=== PATIENT | male | born 1965 | race Caucasian/White ===

== ENCOUNTER → 2018-07-13 | Outpatient (CLI) | payer BC ==
--- NOTE | 2018-07-13 08:51 | CT ---
EXAMINATION TYPE: CT chest w con DATE OF EXAM: 07/13/2018 COMPARISON: None HISTORY: Abn CXR, cough CT DLP: 333.2 mGycm Automated exposure control for dose reduction was used. CONTRAST: CT scan of the chest is performed with IV Contrast, patient injected with 100 mL of Isovue 300. FINDINGS: LUNGS: Moderate upper lobe emphysematous changes. Nodular density right lung apex posteriorly measuri ng 1.4 x 1.7 cm with surrounding parenchymal scar. This may reflect an area of scarring however neopl asm is not excluded. PET/CT is advised. Noncalcified nodule left upper lobe posteriorly measuring 7 m m image 19. Additional scattered calcified granulomas. No evidence for MEDIASTINUM: There are no greater than 1 cm hilar or mediastinal lymph nodes. No pericardial effusi on is seen. Thoracic aorta is of normal caliber. The heart is not enlarged. UPPER ABDOMEN: No significant abnormality appreciated. OTHER: No additional significant abnormality is seen. IMPRESSION: 1. Recommend PET/CT for nodular density right lung apex. 2. Additional noncalcified pulmonary nodule left upper lobe posteriorly.
== END ==
LOC: RADCTMAIN 07:01
PROVIDERS: ATTEND Internal Medicine
DX: R91.1 Solitary pulmonary nodule (principal)
CPT/HCPCS: 71260; Q9967

== ENCOUNTER → 2018-07-21 | Outpatient (CLI) | payer BC ==
--- NOTE | 2018-07-24 07:47 | PE ---
Nuclear medicine PET/CT HISTORY: Multiple pulmonary nodules Patient received 10.7 mCi F-18 FDG intravenously in delayed scanning was performed from the skull bas e to the mid thighs. Localization and attenuation correction CT scan was performed. Correlation CT chest 07/13/2017 DLP 382 mGy centimeters. Neck and chest: Calcified granuloma at the left lung apex is again noted, stellate density at the rig ht lung apex is again noted, no suspicious hypermetabolic uptake. No evident adenopathy. No endobronc hial lesion, pleural pericardial effusion. Small hiatal hernia is present. Small calcified nodule rig ht lower lobe as well as lingula, left lower lobe in the subpleural location, additional scattered ca lcified nodules are present within the lungs. Abdomen pelvis: There is no adrenal mass. No evident liver mass or retroperitoneal adenopathy. No asc ites. Urinary bladder shows wall thickening likely due to chronic outlet obstruction. Prostate shows associated calcification. No suspicious hypermetabolic uptake. Osseous structures within normal limits for age. Degenerative disc changes, facet arthropathy in the lower lumbar spine. Hypertrophic changes present at the sacroiliac joints. IMPRESSION: No suspicious hypermetabolic uptake. Old granulomatous disease. Follow-up chest CT could be performed to assess for stability of patient's apical density which likely represents scarring.
== END | disposition home or self-care (01) ==
LOC: RADPETMAIN 07:00
PROVIDERS: ATTEND Internal Medicine
DX: R91.8 Other nonspecific abnormal finding of lung field (principal)
CPT/HCPCS: 78815; A9552

== ENCOUNTER → 2018-10-31 | Outpatient (CLI) | payer BC | LOC: CPPFTMAIN 12:58 | PROVIDERS: ATTEND Internal Medicine | DX: J43.9 Emphysema, unspecified (principal) | CPT/HCPCS: 94060; 94726; 94729 ==

== ENCOUNTER → 2018-11-06 | Outpatient (CLI) | payer BC ==
--- NOTE | 2018-11-06 09:11 | CT ---
EXAMINATION TYPE: CT chest w con DATE OF EXAM: 11/06/2018 COMPARISON: 07/13/2018 and PET/CT 07/21/2018 HISTORY: 53-year-old male chest mass, lump TECHNIQUE: Contiguous axial scanning of the chest after the administration of 100 mL Isovue 300 IV co ntrast. Coronal/sagittal reconstructions performed. CT DLP: 350.6 mGycm. Automatic exposure control utilized for a dose reduction. FINDINGS: Heart normal size without pericardial effusion. Aorta normal caliber with conventional arch vessel branching anatomy. A prominent precarinal lymph node measures 1.0 cm versus 6 mm previously. Otherwise, no thoracic lymp hadenopathy by CT size criteria. A few scattered calcified granulomas in the lungs. Moderate centrilobular emphysema particularly in t he upper lungs. Right upper lobe irregular opacity shows slight interval increase in size now measuring 2.7 x 1.9 cm versus 1.7 x 1.4 cm, previously. However, there is adjacent new patchy and confluent airspace opacity extending throughout the right u pper lobe, most confluent in the anterior medial right upper lobe abutting the pleural surface, axial image 18. An 8 mm posterior left upper lobe pulmonary nodule, axial image 16 is unchanged for 4 months. No pleural effusion. Trace bilateral gynecomastia. Visualized upper abdomen shows moderate atherosclerotic changes in the abdominal aorta. Bones: Mild degenerative disc disease. No osseous destructive process. IMPRESSION: 1. COPD with moderate emphysema. 2. Irregular right apical opacity slightly larger at 2.7 x 1.9 cm versus 1.7 x 1.4 cm, previously. Ho wever, this may be secondary to new surrounding patchy infiltrate throughout the right upper lobe, co nfluent along the anteromedial right upper lobe. Findings suggest superimposed pneumonia. Three-month follow-up after treatment recommended to reassess the original lesion in question. 3. Continued follow-up of the 8mm left upper lobe pulmonary nodule as well, stable for 4 months. 4. A borderline sized 1 cm precarinal lymph node increased from 6 mm, likely on a reactive basis. Att ention on follow-up. 5. Prior granulomatous disease.
== END | disposition home or self-care (01) ==
LOC: RADCTMAIN 08:26
PROVIDERS: ATTEND Thoracic Surgery (Cardiothoracic Vascular Surgery)
DX: J43.9 Emphysema, unspecified (principal); R91.1 Solitary pulmonary nodule
CPT/HCPCS: 71260; Q9967

== ENCOUNTER → 2019-02-06 | Outpatient (CLI) | payer BC ==
--- NOTE | 2019-02-07 09:40 | CT ---
EXAMINATION TYPE: CT chest w con DATE OF EXAM: 02/06/2019 COMPARISON: 11/06/2018 HISTORY: f/u prior abnormal chest exam CT DLP: 285.4 mGycm Automated exposure control for dose reduction was used. CONTRAST: CT scan of the chest is performed with IV Contrast, patient injected with 100 mL of Isovue 300. FINDINGS: LUNGS: Decreasing size of right apical soft tissue and pleural thickening now measuring 1.5 x 2.1 cm with previous measurements of 2.6 and 1.9 cm. Findings are best seen on axial image 10. Previously se en medial right upper lobe opacity has also resolved. Redemonstration of posterior left upper lobe no dule measuring up to 0.8 cm, similar to prior. No new suspicious nodules, masses or infiltrates. Rede monstration of scattered calcified granulomas throughout the bilateral lungs. Severe emphysematous ch anges. No pleural effusion or pneumothorax. MEDIASTINUM: There are no greater than 1 cm hilar or mediastinal lymph nodes. Previous precarinal lym ph node is also decreased in size now measuring up to 0.9 cm. No pericardial effusion is seen. OTHER: Visualized upper abdomen is grossly unremarkable. IMPRESSION: Resolution of medial right upper lobe opacity, decreasing size of right apical opacity a nd precarinal lymph node with measurements as above. No new nodules, masses or infiltrates. COPD with moderate emphysema.
== END | disposition home or self-care (01) ==
LOC: RADCTMAIN 17:16
PROVIDERS: ATTEND Thoracic Surgery (Cardiothoracic Vascular Surgery)
DX: J43.9 Emphysema, unspecified (principal)
CPT/HCPCS: 71260; Q9967

== ENCOUNTER → 2020-02-11 | Outpatient (CLI) | payer BC ==
--- NOTE | 2020-02-11 16:52 | CT ---
EXAMINATION TYPE: CT chest w con DATE OF EXAM: 02/11/2020 COMPARISON: CT chest 02/06/2019 HISTORY: chest mass, lump CT DLP: 497 mGycm Automated exposure control for dose reduction was used. CONTRAST: CT scan of the chest is performed with IV Contrast, patient injected with 100 mL of Isovue 300. FINDINGS: LUNGS: Severe centrilobular and paraseptal emphysema. There is redemonstrated biapical scarring and a reas of pleural thickening, which overall appears similar to 02/06/2019 comparison. Multiple calcified granulomas redemonstrated. There are unchanged pulmonary nodules, largest measuring up to 7 mm withi n the left upper lobe (4:22). No suspicious new nodules, masses, or opacities. No pleural effusion. N o pneumothorax. The tracheobronchial tree is patent. MEDIASTINUM/SOFT TISSUES: No axillary, hilar, or mediastinal lymphadenopathy greater than 1 cm. Cardi ac size is normal. No pericardial effusion. No thoracic aortic aneurysm. UPPER ABDOMEN: No adrenal nodule. OSSEOUS: No acute osseous abnormality. IMPRESSION: Severe emphysema with biapical scarring, pleural thickening, and subcentimeter pulmonary nodules whic h are unchanged versus 02/06/2019 comparison. No new nodules or pulmonary masses.
== END | disposition home or self-care (01) ==
LOC: RADCTMAIN 12:34
PROVIDERS: ATTEND Family Medicine
DX: J43.9 Emphysema, unspecified (principal); J92.9 Pleural plaque without asbestos; R91.8 Other nonspecific abnormal finding of lung field
CPT/HCPCS: 71260; Q9967

== ENCOUNTER → 2021-02-04 | Outpatient (CLI) | payer BC ==
--- NOTE | 2021-02-04 20:17 | CT ---
EXAMINATION TYPE: CT chest w con DATE OF EXAM: 02/04/2021 COMPARISON: HISTORY: Chest lump. Spot on lung per patient. CT DLP: 395 mGycm Automated exposure control for dose reduction was used. TECHNIQUE: CT scan of the chest is performed with IV Contrast, patient injected with 100 mL of Isovue 300. MIP Images are created on CT scanner and reviewed. 3D reconstructed images are created on an independent workstation and reviewed. FINDINGS: Nodules: 3.6 mm nodule 4/23 right upper lobe medially, stable. 4.2 mm nodule 4/29 right upper lobe anteriorly, new. 4.6 mm nodule 4/40 right upper lobe peripherally, stable. 4.3 mm nodule 4/45 right middle lobe anteriorly, stable. 3.7 mm nodule 4/53 right middle lobe anteriorly 4/53, stable. 3 mm nodule 4/41 right lower lobe posteriorly, stable. 4.2 mm nodule 4/48 right lower lobe peripherally, stable. 6 mm nodule 4/13 left upper lobe, stable. 8 mm and 3 mm nodules 4/39 left upper lobe peripherally, stable. 4 mm nodule 4/45 left upper lobe subpleural peripheral, stable. 4 mm nodule 4/41 left upper lobe medially, stable. 3 mm nodule 4/51 left lower lobe posterior, stable. Centrilobular emphysema COPD changes with right apical scarring is again seen. Multiple bilateral rig ht greater than left apical bullous emphysema changes noted. Bibasilar subsegmental atelectatic brown es are also seen. No focal airspace disease, pneumothorax or pleural effusion. There is a very thin membrane-like structure in the lower trachea extending from the mid aspect of th e right lateral wall to the lateral inferior aspect of the left lateral wall. This was not seen on pr ior study. There are also opacities layering in the lower trachea series 4 image 19 and those were no t seen on prior study. The peripheral bronchial tree is patent. No mediastinal or hilar adenopathy. The heart is normal in size and there is no pericardial effusion. The great vessels in the thorax are normal in course and caliber. No suspicious osseous abnormality. The thyroid gland is not enlarged. Upper abdomen is unremarkable. The soft tissue is within normal limits. IMPRESSION: 1. New very thin membrane-like structure in the lower trachea with layering lower tracheal opacities, further evaluation recommended may be performed with short-term repeat CT or direct visualization fi ndings may be secondary to aspiration. No evidence of pneumonia. 2. Stable advanced centrilobular bullous emphysema changes with right apical scarring. 3. Stable 3-8 mm pulmonary nodules as described above. No evidence of new nodule. These nodules may b e reactive, infectious or inflammatory. Malignancy cannot be entirely excluded, continued
== END | disposition home or self-care (01) ==
LOC: RADCTMAIN 16:33
PROVIDERS: ATTEND Thoracic Surgery (Cardiothoracic Vascular Surgery)
DX: R91.8 Other nonspecific abnormal finding of lung field (principal); J43.2 Centrilobular emphysema
CPT/HCPCS: 71260; Q9967

== ENCOUNTER → 2022-01-17 | Outpatient (CLI) | payer BC ==
--- NOTE | 2022-01-17 18:06 | CT ---
EXAMINATION TYPE: CT chest wo con CT DLP: 260 mGycm, Automated exposure control for dose reduction was used. DATE OF EXAM: 01/17/2022 4:57 PM COMPARISON: CT chest dated 02/04/2021 and PET scan 08/09/2018. CLINICAL INDICATION:Male, 56 years old with history of R91.8 OTHER NONSPECIFIC ABNORMAL FINDING OF SUZAN NG F, follow up for lung nodule TECHNIQUE: Multiple axial images were obtained through the chest. Sagittal and coronal reformats were created for review. Contrast used: None. Oral contrast used: none. FINDINGS: LUNGS/ PLEURA: There is centrilobular emphysema changes with similar apical scarring, right greater t londono left. There are scattered calcified pulmonary nodules throughout the lungs. AIRWAY: Patent, secretions or seen within on the tracheal wallace and layering dependently. HEART: Size within normal limits. MEDIASTINUM: No gross evidence of adenopathy. VASCULATURE: No aortic aneurysm. MUSCULOSKELETAL: No acute osseous abnormalities, mild multilevel disc degeneration changes throughout the SOFT TISSUES/LYMPH NODES: Unremarkable. LOWER NECK: No significant findings. UPPER ABDOMEN: No significant findings. IMPRESSION: 1. Stable appearance of pulmonology within the lung majority of which are calcified and most consist ent with calcified granulomas. No new and/or enlarging suspicious pulmonary nodules. Consider enrolli ng the patient in merely lung cancer screening criteria. 2. Moderate to severe centrilobular emphysema.
== END ==
LOC: RADCTMAIN 16:25
PROVIDERS: ATTEND Thoracic Surgery (Cardiothoracic Vascular Surgery)
DX: R91.8 Other nonspecific abnormal finding of lung field (principal); J43.2 Centrilobular emphysema
CPT/HCPCS: 71250

== ENCOUNTER → 2023-01-19 | Outpatient (CLI) | payer BC ==
--- NOTE | 2023-01-19 14:46 | US ---
EXAMINATION TYPE: US liver DATE OF EXAM: 01/19/2023 COMPARISON: NONE CLINICAL INDICATION: Male, 57 years old with history of R74.8 ABNORMAL LEVELS OF OTHER SERUM ENZYMES; Lupus, elevated lft's TECHNIQUE: Multiple sonographic images of the right upper quadrant are obtained. FINDINGS: EXAM MEASUREMENTS: Liver Length: 12.5 cm Gallbladder Wall: 0.1 cm CBD: 0.3 cm Right Kidney: 10.8x4.9x4.7 cm Pancreas: Tail obscured by overlying bowel gas Liver: wnl Gallbladder: wnl Evidence for sonographic Limon's sign: No CBD: wnl Right Kidney: wnl, some non-shadowing echogenic foci not believed to be stones. Probably prominent v ascular reflectors are IMPRESSION: No gallstones or biliary duct dilatation. Overall normal homogeneous appearance to the liver by ultra sound.
== END | disposition home or self-care (01) ==
LOC: RADUSWWP 06:53
PROVIDERS: ATTEND Internal Medicine
DX: R74.8 Abnormal levels of other serum enzymes (principal)
CPT/HCPCS: 76705

== ENCOUNTER → 2023-01-26 | Outpatient (CLI) | payer BC ==
--- NOTE | 2023-01-26 16:07 | CTL ---
EXAMINATION TYPE: CT Low Dose Lung DATE OF EXAM ORDERED: 01/26/2023 HISTORY: Z12.2 F17.210. Lung cancer screening, 25 pack year history, current smoker. CT DLP: 85.[address] CTDI: 2.0 mGy Automated exposure control for dose reduction was used. SCREENING VISIT: First screening visit COMPARISON: Multiple CT chest with most recent 01/17/2022 TECHNIQUE: Low dose computed tomography scan was performed through the chest at 1 mm thick sections a nd reconstructed images in multiple planes at 1 mm and [address] DIAGNOSTIC QUALITY: Satisfactory FINDINGS: LUNG NODULES: Scattered calcified granulomas. No clinically significant pulmonary nodule identified. LUNGS: COPD: Severity: Moderate Fibrosis: Severity: None Lymph nodes: None Other findings: Stable scarring within the right lung apex. RIGHT PLEURAL SPACE: Effusion: None Calcification: None Thickening: None Pneumothorax: None LEFT PLEURAL SPACE: Effusion: None Calcification: None Thickening: None Pneumothorax: None HEART: Heart Size: Normal Coronary Calcification: None Pericardial Effusion: None OTHER FINDINGS: Upper abdomen: None Bony thorax: None Supraclavicular region: None Other: None IMPRESSION: 1. No clinically significant pulmonary nodule. 2. Moderate emphysematous changes with stable scarring in the right lung apex. 3. CT LUNG RAD AND CT CHEST RECOMMENDATION: Lung-Rad 1 Negative: Continue annual screening with LDCT in 12 months. S Modifier (other clinically significant findings): None
== END | disposition home or self-care (01) ==
LOC: RADCTMAIN 15:09
PROVIDERS: ATTEND Internal Medicine
DX: Z12.2 Encounter for screening for malignant neoplasm of respiratory organs (principal); J43.9 Emphysema, unspecified; F17.210 Nicotine dependence, cigarettes, uncomplicated; J98.4 Other disorders of lung
CPT/HCPCS: 71271

== ENCOUNTER → 2023-05-27 | Outpatient (CLI) | payer BC ==
[2023-05-27 13:07] LABS: Basophils # (A) 0.04 X 10*3/uL (0.00-0.10); Basophils % (A) 0.4 %; Eosinophils % (A) 1.1 %; HCT 44.3 % (39.6-50.0); HGB 14.9 g/dL (13.0-17.0); Lymphocytes # (A) 1.79 X 10*3/uL (0.90-5.00); Lymphocytes % (A) 19.2 %; MCHC 33.6 g/dL (32.0-37.0); MCV 95.1 FL (80.0-97.0); Mean Platelet Volume 9.7 FL (9.5-12.2); Monocytes # (A) 0.53 X 10*3/uL (0.20-1.00); Monocytes % (A) 5.7 %; NRBC Per 100 WBC 0 X 10*3/uL (0.00-0.01); Neutrophils # (A) 6.83 X 10*3/uL (1.80-7.70); Neutrophils % (A) 73.3 %; Platelet Count 259 X 10*3/uL (140-440); RBC 4.66 X 10*6/uL (4.40-5.60); RDW 12.2 % (11.5-14.5); WBC 9.32 X 10*3/uL (4.50-10.00)
[2023-05-27 13:40] LABS: ALT 16 U/L (10-49); AST 20 U/L (14-35); Albumin 4.2 g/dL (3.8-4.9); Albumin/Globulin Ratio 1.62 Ratio (1.60-3.17); Alkaline Phosphatase 129 U/L (41-126); BUN/Creat Ratio 20.14 Ratio (12.00-20.00); Blood Urea Nitrogen 14.1 mg/dL (9.0-27.0); Calcium 9.6 mg/dL (8.7-10.3); Carbon Dioxide 23.6 mmol/L (21.6-31.8); Chloride 102 mmol/L (96-109); Chol/HDL Ratio 4.27 Ratio; Globulin 2.6 g/dL (1.6-3.3); Glucose 102 mg/dL (70-110); LDL Cholesterol,Calculated 141.4 mg/dL (0.0-131.0); Magnesium 2.3 mg/dL (1.5-2.4); Potassium 4.8 mmol/L (3.5-5.5); Sodium 138 mmol/L (135-145); Total Bilirubin 0.4 mg/dL (0.3-1.2); Total Protein 6.8 g/dL (6.2-8.2); VLDL Calculation 12.46 mg/dL (5.00-40.00)
[2023-05-27 15:47] LABS: PSA Annual Screen 0.874 ng/mL (0.000-4.000)
== END | disposition home or self-care (01) ==
LOC: LABWHC1 07:45
PROVIDERS: ATTEND Internal Medicine
DX: Z12.5 Encounter for screening for malignant neoplasm of prostate (principal); E78.5 Hyperlipidemia, unspecified; E55.9 Vitamin D deficiency, unspecified; R07.9 Chest pain, unspecified
CPT/HCPCS: 80061; 80053; 84443; 83735; 85025; 82306; 93005; 36415; G0103

== ENCOUNTER → 2023-06-23 | Outpatient (CLI) | payer BC ==
[~2023-06-23] MED LIST: REGADENOSON 0.4 MG/5 ML SYRINGE IV ONE
--- NOTE | 2023-06-23 18:41 | NM ---
EXAMINATION TYPE: NM stress lexiscan cardiolite DATE OF EXAM: 06/23/2023 COMPARISON: NONE CLINICAL INDICATION: Male, 58 years old with history of R07.9 chest pain; TECHNIQUE: After the intravenous administration of 9.5 mCi Tc 99m Sestamibi - Cardiolite resting SPE CT images acquired 55 minutes post injection. The patient received 0.4mg Lexiscan, 22.8 mCi Tc 99m Sestamibi - Stress images obtained [address] injection FINDINGS: Review of stress and rest SPECT images demonstrates a fixed defect at the septal apex. No discrete re versibility is seen. Gated analysis shows normal wall motion with an estimated left ventricular eject ion fraction of 59 %. TID is calculated at 1.14, upper limits of normal. IMPRESSION: Small fixed defect at the septal apex that could represent an area of old infarct or atte nuation artifact. Clinically correlate. No inducible ischemia identified.
--- NOTE | 2023-06-24 12:00 | CA ---
Lexiscan Nuclear Stress Test Report Name: Bj Bazzi Exam Date: 06/23/2023 10:15 Exam Location: [facility] Stress Ht (in): 69 Wt (lb): 165 BSA: 1.90 Ordering Phys: Khoi Rodriguez MD Referring Phys: Khoi Rodriguez MD Technologist: Alfonso Zuniga Age: 58 Gender: M : 1965 Procedure CPT: Indications: R07.9 CHEST PAIN ICD-10 Codes: Patient History: CHEST TIGHTNESS, PARDEEP, PALPITATIONS, HTN Medications: VIT D, VERAPAMIL, MONTELUKAST, HZTZ, SIDENAFIL, Meds past 24 hrs: Pretest Chest Pain: STRESS TEST Lexiscan Protocol Exercise Duration (min:sec): 02:[address] Depressions (mm): Angina Score: Pineda Score: Resting HR (bpm): 81 Peak HR (bpm): 104 Resting BP (mmHg): 121 / 88 Peak BP (mmHg): 133 / 66 MPHR: 164 Target HR: 139 % MPHR: 63 METS: 1.0 Total Dose: Peak Dose: Atropine: Double Product: 49464 BP Response: Stress Termination: INFUSION COMPLETE Stress Symptoms: NO SYMPTOMS Stress Summary: ECG ANALYSIS Resting ECG: Stress ECG: CONCLUSIONS At baseline EKG showed normal sinus rhythm, normal axis, no significant ST or T wave abnormalities. Patient recieved IV infusion of Lexiscan 0.4mg and at peak infusion EKG showed no significant change from baseline. Conclusions: 1. Normal EKG response to Lexiscan infusion 2. Nuclear imaging to be reported separately. Dr. Jagdish Weiner DO (Electronically Signed) Final Date: 24 June 2023 11:58
== END | disposition home or self-care (01) ==
LOC: RADNMMAIN 08:01
PROVIDERS: ATTEND Internal Medicine
DX: R07.9 Chest pain, unspecified (principal)
CPT/HCPCS: 93017; 78452; A9500; J2785

== ENCOUNTER 2023-07-28 08:51 | Day surgery (SDC) | payer BC ==
[2023-07-24 15:17] VITALS: BMI 23.9
[~2023-07-28 08:51] MED LIST changes: +ALPRAZolam 0.25 MG TAB PO PRN; +ALPRAZolam 0.5 MG TAB PO PRN; +ASPIRIN 325 MG TAB PO STA; +NITROGLYCERIN SL TABS 0.4 MG TAB SUBLINGUAL PRN; -REGADENOSON 0.4 MG/5 ML SYRINGE IV ONE; +SODIUM CHLORIDE 0.9% 1,000 ML in EMPTY BAG 1 BAG IV SCH
[2023-07-28 09:13] VITALS: RESP 18; TEMP 97.8
[2023-07-28] MEDS ORDERED: LIDOCAINE 1% INJ 10MG/ML (20 ML MDV) ONE (10:28)
[2023-07-28] MEDS ORDERED: VERAPAMIL 2.5 MG/ML 2 ML AMP ONE (10:28)
[2023-07-28] MEDS ORDERED: HEPARIN SODIUM 1,000 UN/ML (10ML VL) ONE (10:38)
[2023-07-28] MEDS ORDERED: fentaNYL (PF) 50 MCG/ML 2 ML AMP ONE (10:38)
[2023-07-28] MEDS ORDERED: fentaNYL (PF) 50 MCG/ML 2 ML AMP IVP ONE ×2 (10:49→11:27)
[2023-07-28] MEDS ORDERED: MIDAZOLAM HCL 10 MG/10 ML VIAL IVP ONE (10:49)
[2023-07-28] MEDS ORDERED: LIDOCAINE 1% INJ 10MG/ML (20 ML MDV) SQ ONE ×3 (10:49→11:29)
[2023-07-28] MEDS ORDERED: MIDAZOLAM 2 MG/2 ML VIAL IVP ONE (11:27)
[2023-07-28] MEDS ORDERED: VERAPAMIL SYRINGE (5 MG/10 ML) INTRAARTER ONE (11:36)
[2023-07-28] MEDS ORDERED: HEPARIN SODIUM 1,000 UN/ML (10ML VL) IVP ONE (11:41)
[2023-07-28] MEDS ORDERED: IOPAMIDOL-370 100ML BTL INJ ONE ×2 (12:00→12:01)
[2023-07-28] MEDS ORDERED: RX INFO: IV CONTRAST WAS GIVEN 1 EACH MISC MISCELLANE PRN (13:05)
[2023-07-28] MEDS ORDERED: SODIUM CHLORIDE 0.9% 1,000 ML IV SCH (13:15)
[2023-07-28 15:36] VITALS: BP 146/88; PULSE 82
--- NOTE | 2023-07-28 19:47 | P.CARDCATH ---
Date of Procedure: 07/28/23 Description of Procedure: DIAGNOSTIC CORONARY ANGIOGRAPHY and LEFT HEART CATH REPORT PROCEDURES PERFORMED: Left heart catheterization Selective coronary angiography Moderate conscious sedation 72 mins Attempted right radial access, failed Left radial access, ultrasound assisted Right common femoral access, ultrasound assisted Right common femoral arteriogram Angioseal Closure Right iliac arteriogram Aorto-iliac arteriogram INDICATION: Abnormal stress test and crescendo chest pressure. Patient was referred to cardiology because of an abnormal stress test. On clinical evaluation in the clinic patient reported crescendo substernal chest pressure-like symptoms with exertion along with dyspnea on exertion. Due to his unstable symptoms and an abnormal stress test along with his risk factors of smoking, he was scheduled for an outpatient heart catheterization procedure. CONSENT: I have discussed the risks, benefits and alternative therapies for the above-mentioned procedure, sedation/analgesia and necessary blood product administration (if indicated, as they pertain to this patient). The patient has indicated understanding and acceptance of the risks and procedures discussed. Conscious Sedation: Patient's ECG, heart rate, blood pressure, pulse oximetry was monitored throughout the duration of procedure under the direct supervision. 3 mg Versed and 75 mg Fentanyl were used for induction of moderate conscious sedation. Total duration of 72 minutes. PROCEDURE:After the risks, benefits and alternatives of the above mentioned procedure explained in detail with the patient, informed consent was obtained. Patient was taken to the catheterization lab and prepped and draped in usual sterile fashion. Right radial artery was identified by palpation. 1% lidocaine was infiltrated over right radial artery. Right radial artery access could not be obtained by palpation method. Ultrasound was utilized but by that time the radial artery was spasmed. Decision was made to proceed with a right femoral artery access. Ultrasound was used to identify the right common femoral artery. 1% lidocaine was infiltrated over the right common femoral artery. Using ultrasound arterial access was obtained using micropuncture needle. A 6-Tajik sheath was placed in the right radial artery using modified Seldinger technique. Right common femoral arteriogram was performed to visualize the placement of the sheath which appeared well-positioned good distal flow in the SFA and profunda. J-wire was advanced through the sheath but could not be advanced. The JR4 catheter was loaded on the wire to direct the wire but could not be advanced. The wire was removed and was exchanged for out Glidewire. The Glidewire could not be advanced. The wire was removed and pressures were obtained from the right iliac artery. Right Iliac pressures were 124/83. Right iliac angiogram was performed which showed concerns of possible upstream occlusion. Decision was made to proceed with a left radial access. Left radial artery was identified using ultrasound. 1% lidocaine was infiltrated over the left radial artery. Left radial artery access was obtained via modified Seldinger technique. A 6 Tajik glide sheath was advanced in the left radial artery and was flushed. J-wire JR4 diagnostic catheter was advanced. Once the tip of the catheter and the wire were in ascending aorta, 5000 units of IV heparin was administered. The wire and the catheter was manipulated to cross the aortic valve. The wire was removed and the catheter was flushed. LV pressures were obtained and pullback was performed across the aortic valve. It was manipulated to selectively engage the right coronary ostium. Right coronary angiogram was performed. The JR4 catheter was exchanged for a JL 4 diagnostic catheter over the J-wire. The wire was removed and the catheter was flushed and manipulated to selectively engage the left coronary ostium. Left coronary angiogram was performed in different angiographic projections. Under fluoroscopy guidance, The catheter was disengaged from the left coronary ostium and pulled to the aortic arch. The wire was advanced through the catheter to reach the descending aorta. The catheter was exchanged for a pigtail catheter. Aortobiiliac arteriogram was performed using power injection with a setting of 15 mm/s for 20 mL. It was noticed that there was no dissection and there was good distal flow in both iliac arteries. Angioseal closure device was used to close the arteriotomy site. Appropriate patent hemostasis was achieved. The patient tolerated the procedure well. Patient was transported back to the post catheterization holding area in stable condition. Angiographic images were reviewed in detail. HEMODYNAMICS: Aortic Pressure: 142/81 mmHg. LV pressure: 47/1 mmHg. LVEDP 9 mmHg. There was no significant gradient across the aortic valve Right iliac pressures 124/83 mmHg SELECTIVE CORONARY ARTERIOGRAPHY: LEFT MAIN: The left main is a large caliber vessel which bifurcates into the LAD and circumflex. Left main appears angiographically normal. LEFT ANTERIOR DESCENDING CORONARY ARTERY: LAD terminates before reaching the apex. It appears angiographically normal. Rise to a small diagonal branch which appears angiographically normal LEFT CIRCUMFLEX CORONARY ARTERY: It is Co-dominant vessel. Left circumflex is a moderate caliber vessel. It appears angiographically normal. RIGHT CORONARY ARTERY: Co-Dominant vessel. The right coronary artery is a large caliber vessel which gives PDA and PLV branch. Proximal RCA is mildly ectatic with positively remodeled plaque. Mid RCA has 20% small to diffuse disease. IMPRESSION: Angiographically normal coronary arteries as described above. Normal left sided filling pressures Possible right common iliac artery dissection with no limitation of distal flow. Good right lower extremity pulses in both posterior tibial and anterior tibial. PLAN: Aggressive risk factor modification per most recent ACC/AHA guidelines. 100 cc fluids for 4 hours Discharge home in 6 hours Follow-up in the office in 1-2 weeks. Performing Physician Harsh Johnson MD FAC, RPVI Thank you for allowing [facility] to participate in this patient's care. Feel free to reach out in case of any followup questions. Please CC this report to Dr. Khoi Rodriguez DO
== END 2023-07-28 17:00 | disposition home or self-care (01) ==
LOC: CATHCVL 08:51
PROVIDERS: ATTEND Student in an Organized Health Care Education/Training Program
DX: R94.39 Abnormal result of other cardiovascular function study (principal)
CPT/HCPCS: 93458; 75625; 76937; 99152; 99153 ×4; C1769 ×3; C1760; C1894 ×2; J2250 ×2; J2001; J3010; J1644; Q9967

== ENCOUNTER → 2023-09-30 | Outpatient (CLI) | payer BC ==
[2023-09-30 13:14] LABS: HCT 46.7 % (39.6-50.0); HGB 15.6 g/dL (13.0-17.0); MCH 31.9 pg (27.0-32.0); MCHC 33.4 g/dL (32.0-37.0); MCV 95.5 FL (80.0-97.0); NRBC Per 100 WBC 0 X 10*3/uL (0.00-0.01); Platelet Count 282 X 10*3/uL (140-440); RBC 4.89 X 10*6/uL (4.40-5.60); RDW 13.1 % (11.5-14.5); WBC 8.28 X 10*3/uL (4.50-10.00)
[2023-09-30 13:39] LABS: ALT 26 U/L (10-49); AST 25 U/L (14-35); Albumin 4.5 g/dL (3.8-4.9); Albumin/Globulin Ratio 1.55 Ratio (1.60-3.17); Alkaline Phosphatase 114 U/L (41-126); BUN/Creat Ratio 10.62 Ratio (12.00-20.00); Blood Urea Nitrogen 8.5 mg/dL (9.0-27.0); Calcium 9.7 mg/dL (8.7-10.3); Carbon Dioxide 27.3 mmol/L (21.6-31.8); Chloride 102 mmol/L (96-109); Chol/HDL Ratio 2.76 Ratio; Globulin 2.9 g/dL (1.6-3.3); Glucose 95 mg/dL (70-110); LDL Cholesterol,Calculated 65.3 mg/dL (0.0-131.0); Potassium 5.1 mmol/L (3.5-5.5); Sodium 140 mmol/L (135-145); Total Bilirubin 0.3 mg/dL (0.3-1.2); Total Protein 7.4 g/dL (6.2-8.2)
[2023-09-30 13:50] LABS: NT-Pro-B-Type Natriuretic Pept <36 pg/mL (0-125)
== END | disposition home or self-care (01) ==
LOC: LABWHC1 08:03
PROVIDERS: ATTEND Student in an Organized Health Care Education/Training Program
DX: I50.9 Heart failure, unspecified (principal); E11.22 Type 2 diabetes mellitus with diabetic chronic kidney disease; N18.9 Chronic kidney disease, unspecified
CPT/HCPCS: 36415; 80053; 80061; 83036; 83880; 84443; 85027

== ENCOUNTER → 2024-03-13 | Outpatient (CLI) | payer BC ==
--- NOTE | 2024-03-14 18:52 | CTL ---
EXAMINATION TYPE: CT Low Dose Lung DATE OF EXAM: 03/13/2024 4:21 PM CLINICAL INDICATION: Male, 58 years old with history of Z12.2 LUNG CA SCR F17.210 CURRENT SMOKER; per [place] tobacco use , history of tobacco use. COMPARISON: 01/26/2023 TECHNIQUE: Multiple axial non-contrast scans were obtained from approximately the lung apices through the upper abdomen. Coronal and sagittal reformatted images were obtained. Low dose technique was uti lized. CT DLP: 72.8 mGycm, Automated exposure control for dose reduction was used. CT Contrast: Contrast used: None Oral contrast used: None FINDINGS: ======== Lack of intravenous contrast and low dose technique limits the evaluation of the vascular and soft ti ssue structures. LUNGS: No evidence of pulmonary fibrosis. No evidence of focal consolidation, pneumothorax or pleural effusion. Centrilobular emphysema changes. Scarring changes throughout the right upper lung. Nodules: RUL: Consolidation along the anterior aspect with a somewhat wedge shape. RML: None. RLL: None. KAILEE: Calcified granuloma LLL: Consolidation along the anterior aspect with a somewhat wedge shape. AIRWAY: Patent and unremarkable. HEART: Size within normal limits. MEDIASTINUM: No gross evidence of adenopathy. VASCULATURE: No aortic aneurysm. MUSCULOSKELETAL: No acute osseous abnormalities SOFT TISSUES/LYMPH NODES: Unremarkable. LOWER NECK: No significant findings. UPPER ABDOMEN: No significant findings. IMPRESSION: 1. Scattered calcified granulomas, no clinically significant pulmonary nodules. 2. Some consolidation changes anteriorly in the upper lungs. Short-term follow-up in 3 months recomme nded to ensure resolution. Findings favor infectious/inflammatory process. 3. Moderate emphysema. CT LUNG RAD AND CT CHEST RECOMMENDATION: Lung-Rad 2 Benign Appearance or Behavior: Continue annual sc reening with LDCT in 12 months. S Modifier (other clinically significant findings): None Recommend smoking cessation (if current smoker), or continuation of smoking cessation (if prior smoke r). Annual screening for lung cancer with low-dose computed tomography is recommended in adults ages 55 to 77 years who have a 30 pack-year smoking history and currently smoke or have quit within the pa st 15 years. Screening should be discontinued once a person has not smoked for 15 years or develops a health problem that substantially limits life expectancy or the ability or willingness to have curat shashi lung surgery. Lung rads 2021 [email or web address] [facility], , 03/14/2024 6:50 PM
== END | disposition home or self-care (01) ==
LOC: RADCTMAIN 15:42
PROVIDERS: ATTEND Internal Medicine
DX: Z12.2 Encounter for screening for malignant neoplasm of respiratory organs (principal); J84.10 Pulmonary fibrosis, unspecified; J43.9 Emphysema, unspecified; F17.210 Nicotine dependence, cigarettes, uncomplicated
CPT/HCPCS: 71271

== ENCOUNTER → 2024-06-24 | Outpatient (CLI) | payer BC ==
--- NOTE | 2024-06-26 21:48 | CT ---
EXAMINATION TYPE: CT chest wo con DATE OF EXAM: 06/24/2024 8:09 AM COMPARISON: 01/17/2022 CLINICAL INDICATION: Male, 59 years old with history of R93.[address], TECHNIQUE: Axial images were obtained at 5 mm thick sections. Reconstructed images are reviewed on [employer] computer in the coronal plane. Contrast used: mL of , (none if empty) Oral contrast used: (none if empty) CT DLP: mGycm, Automated exposure control for dose reduction was used. FINDINGS: Portion of the thyroid visualized is normal. Extensive emphysematous changes are in the upper lung garcia. There appears to be some stable scarring at the right apex. There is a 0.5 cm density within the post erior left upper lung field. Series 4 image 20. There is a 0.5 cm density in the anterior right midlu ng. Image 31. There is a new lobular density measuring 2.9 x 2.6 cm in the anterior left midlung. Series 3 image 31 . Additional workup neoplasm is recommended. There are couple of calcified granuloma within the peripheral lung garcia bilaterally. There is a 1.0 cm lymph node in the right peribronchial region. Series 3 image 30. The ascending aort a diameter at the level of the main pulmonary artery is 4.1 cm. The main pulmonary artery diameter a t the bifurcation is 2.[address] sections are obtained through the upper abdomen. Abdomen is essentially unremarkable. IMPRESSION: 1. Suspicious lobular mass anterior left mid lung. PET CT recommended for additional workup for neopl asm. 2. Enlarged right peribronchial lymph node. 3. COPD [facility], Workstation: [id number], 06/26/2024 9:46 PM
== END | disposition home or self-care (01) ==
LOC: RADCTMAIN 07:53
PROVIDERS: ATTEND Internal Medicine
DX: J44.9 Chronic obstructive pulmonary disease, unspecified (principal); R93.89 Abnormal findings on diagnostic imaging of other specified body structures; R59.0 Localized enlarged lymph nodes
CPT/HCPCS: 71250

== ENCOUNTER → 2024-07-09 | Outpatient (CLI) | payer BC ==
--- NOTE | 2024-07-10 08:18 | US ---
EXAMINATION TYPE: US kidneys/renal and bladder DATE OF EXAM: 07/09/2024 COMPARISON: 02/17/2022 CLINICAL INDICATION: Male, 59 years old with history of LUPUS M329; LUPUS TECHNIQUE: Grayscale imaging of the bilateral kidneys and urinary bladder: FINDINGS: EXAM MEASUREMENTS: Right Kidney: 9.8x5.5x4.8 cm Left Kidney: 11.8x5.6x6.5 cm Right Kidney: No hydronephrosis or masses seen Left Kidney: Mild dilation of the renal pelvis possibly hydronephrosis. No masses or cysts identified . Bladder: wnl Bilateral Jets seen: Yes There is no evidence for hydronephrosis at this point in time. No nephrolithiasis is seen. No yvonne s are identified. The urinary bladder is anechoic. exam limited by bowel gas IMPRESSION: Mild left hydronephrosis correlate for obstructive uropathy. [facility], , 07/10/2024 8:15 AM
== END | disposition home or self-care (01) ==
LOC: RADUSWWP 15:30
PROVIDERS: ATTEND Internal Medicine
DX: M32.9 Systemic lupus erythematosus, unspecified (principal); N13.30 Unspecified hydronephrosis; N13.9 Obstructive and reflux uropathy, unspecified
CPT/HCPCS: 76770

== ENCOUNTER → 2024-07-10 | Outpatient (CLI) | payer BC ==
--- NOTE | 2024-07-10 15:30 | XR ---
EXAMINATION TYPE: XR chest 2V DATE OF EXAM: 07/10/2024 3:26 PM COMPARISON: Chest radiographs from 09/30/2011 CLINICAL INDICATION: Male, 59 years old with history of BRONCHITIS J40; H TECHNIQUE: XR chest 2V Frontal and lateral views of the chest. FINDINGS: Lungs/Pleura: Left midlung calcified granuloma is unchanged from 2012. There is flattening of the robinson phragm with increased lucency of the lungs. No evidence of pneumothorax, pleural effusion or focal co nsolidation. Pulmonary vascularity: Unremarkable. Heart/mediastinum: Cardiomediastinal silhouette is unremarkable. Musculoskeletal: No acute osseous pathology. IMPRESSION: 1. No acute cardiopulmonary disease process. 2. COPD changes. [facility], , 07/10/2024 3:28 PM
== END | disposition home or self-care (01) ==
LOC: LABWHC1 14:42
PROVIDERS: ATTEND Internal Medicine
DX: U07.1 COVID-19 (principal); J44.9 Chronic obstructive pulmonary disease, unspecified; J40 Bronchitis, not specified as acute or chronic
CPT/HCPCS: 71046; 87635

== ENCOUNTER → 2024-07-19 | Outpatient (CLI) | payer BC ==
--- NOTE | 2024-07-20 08:23 | PE ---
EXAMINATION TYPE: PET CT fusion skull to thigh DATE OF EXAM: 07/19/2024 CLINICAL INDICATION:Male, 59 years old with history of R91.1 LUNG NODULE; TECHNIQUE: Following the intravenous administration of 11.69 mCi of F-18 FDG, whole body images are performed from the skull base to the Mid thigh. Images are reviewed on the computer in the coronal, axial, and sagittal planes. Reconstructed rotating images are created on independent workstation an d reviewed on the computer. A non-contrast CT is performed in conjunction with the PET scan. Glucos e level 94 mg/dL CT DLP: 314 mGycm, Automated exposure control for dose reduction was used. COMPARISON: CT 06/24/2020 10/13/1823, PET/CT None, MRI: None FINDINGS: Mediastinal SUV mean is 1.7. Hepatic parenchyma SUV mean is 2.2. SKULL BASE AND NECK: Mild asymmetric uptake within the left posterior pharyngeal recess max SUV 4.6. CHEST, MEDIASTINUM, AND HILAR REGION: * FDG avid left upper lung pulmonary nodule Max SUV 7.6 measuring 23 x 24 mm. The stomach fingerlike extension extends inferiorly towards the periphery noted. * Right upper lungs scarring changes max SUV 2.5 ABDOMEN AND PELVIS: No suspicious radiotracer activity. MUSCULOSKELETAL STRUCTURES: No suspicious radiotracer activity. OTHER CT: Severe emphysema and evidence of chronic granulomatous disease with scattered calcified gra nulomas. Mild gynecomastia bilaterally. Large amount stool in the colon. Few scattered colonic divert icula. Atherosclerosis of the arterial vasculature. IMPRESSION: 1. Left upper lobe pulmonary nodule with uptake suspicious for malignancy. 2. Right upper lobe suspected scarring changes with mild uptake. 3. Mild asymmetric uptake within the left posterior pharyngeal recess max SUV 4.6 likely physiologic . [facility], , 07/20/2024 8:21 AM
== END | disposition home or self-care (01) ==
LOC: RADPETMAIN 10:10
PROVIDERS: ATTEND Internal Medicine
DX: R91.1 Solitary pulmonary nodule (principal); R93.7 Abnormal findings on diagnostic imaging of other parts of musculoskeletal system
CPT/HCPCS: 78815; A9552

== ENCOUNTER → 2024-08-13 | Outpatient (CLI) | payer BC | LOC: CPPFTMAIN 17:35 | PROVIDERS: ATTEND Thoracic Surgery (Cardiothoracic Vascular Surgery) | DX: C34.90 Malignant neoplasm of unspecified part of unspecified bronchus or lung (principal); J44.9 Chronic obstructive pulmonary disease, unspecified; Z88.5 Allergy status to narcotic agent | CPT/HCPCS: 94060; 94726; 94729 ==

== ENCOUNTER → 2024-08-29 | Outpatient (CLI) | payer BC ==
[2024-08-29 15:50] LABS: INR 0.9 (<1.2); Partial Thromboplastin Time 27.5 sec (22.0-30.0); Prothrombin Time 10.4 sec (10.0-12.5)
[2024-08-29 19:45] LABS: Basophils # (A) 0.05 X 10*3/uL (0.00-0.10); Basophils % (A) 0.6 %; Eosinophils # (A) 0.15 X 10*3/uL (0.04-0.35); Eosinophils % (A) 1.8 %; HCT 42.5 % (39.6-50.0); HGB 14.3 g/dL (13.0-17.0); Lymphocytes # (A) 3.48 X 10*3/uL (0.90-5.00); Lymphocytes % (A) 41.4 %; MCH 31.6 pg (27.0-32.0); MCHC 33.6 g/dL (32.0-37.0); MCV 93.8 FL (80.0-97.0); Mean Platelet Volume 9.8 FL (9.5-12.2); Monocytes # (A) 0.59 X 10*3/uL (0.20-1.00); NRBC Per 100 WBC 0 X 10*3/uL (0.00-0.01); Neutrophils # (A) 4.11 X 10*3/uL (1.80-7.70); Neutrophils % (A) 48.8 %; Platelet Count 269 X 10*3/uL (140-440); RBC 4.53 X 10*6/uL (4.40-5.60); RDW 12.6 % (11.5-14.5); WBC 8.41 X 10*3/uL (4.50-10.00)
[2024-08-29 19:52] LABS: Blood Urea Nitrogen 9.5 mg/dL (9.0-27.0); Chloride 100 mmol/L (96-109); Glucose 101 mg/dL (70-110); Potassium 4.5 mmol/L (3.5-5.5); Sodium 136 mmol/L (135-145)
[2024-08-29 19:53] LABS: Carbon Dioxide 26.1 mmol/L (21.6-31.8)
== END | disposition home or self-care (01) ==
LOC: LABPAT 14:17
PROVIDERS: ATTEND Thoracic Surgery (Cardiothoracic Vascular Surgery)
DX: Z01.818 Encounter for other preprocedural examination (principal); E86.0 Dehydration; C34.90 Malignant neoplasm of unspecified part of unspecified bronchus or lung; R58 Hemorrhage, not elsewhere classified; Z79.899 Other long term (current) drug therapy
CPT/HCPCS: 36415; 80051; 82565; 82947; 84520; 85025; 85610; 85730; 86850; 86900; 86901; 93005

== ENCOUNTER → 2024-10-03 | Outpatient (CLI) | payer BC ==
[2024-10-03 13:29] LABS: Basophils # (A) 0.08 10*3/uL (0.00-0.10); Basophils % (A) 0.5 %; Eosinophils # (A) 0.14 10*3/uL (0.04-0.35); Eosinophils % (A) 0.9 %; HGB 9.6 g/dL (13.0-17.0); Lymphocytes # (A) 2.82 10*3/uL (0.90-5.00); Lymphocytes % (A) 18.6 %; MCV 87.1 fL (80.0-97.0); Mean Platelet Volume 8.2 fL (9.5-12.2); Monocytes # (A) 1.08 10*3/uL (0.20-1.00); Monocytes % (A) 7.1 %; Neutrophils # (A) 10.48 10*3/uL (1.80-7.70); Platelet Count 832 10*3/uL (140-440); RBC 3.56 10*6/uL (4.40-5.60); WBC 15.19 10*3/uL (4.50-10.00)
[2024-10-03 13:30] LABS: ALT 31 U/L (4-49); AST 48 U/L (17-59); African American GFR (CKD) >90 (>60 ml/min/1.73 sqM); Albumin 3.2 g/dL (3.5-5.0); Albumin/Globulin Ratio 0.8; Alkaline Phosphatase 157 U/L (38-126); Anion Gap 7 mmol/L; Blood Urea Nitrogen 7 mg/dL (9-20); Calcium 9.3 mg/dL (8.4-10.2); Carbon Dioxide 28 mmol/L (22-30); Chloride 96 mmol/L (98-107); Glucose 117 mg/dL (74-99); Non-African American GFR(CKD) >90 (>60 ml/min/1.73 sqM); Potassium 4.5 mmol/L (3.5-5.1); Sodium 131 mmol/L (137-145); Total Bilirubin 0.6 mg/dL (0.2-1.3); Total Protein 7.2 g/dL (6.3-8.2)
[2024-10-03 15:34] LABS: Protein, Total 7.2 g/dL (6.2-8.2)
== END | disposition home or self-care (01) ==
LOC: LABWHC1 12:41
PROVIDERS: ATTEND Internal Medicine
DX: E61.1 Iron deficiency (principal); R74.8 Abnormal levels of other serum enzymes; R77.1 Abnormality of globulin
CPT/HCPCS: 36415; 80053; 84165; 85025; 86334

== ENCOUNTER 2024-10-07 09:00 | Observation (INO) | payer BC ==
--- NOTE | 2024-10-07 09:14 | ED ---
General Adult HPI - General Chief complaint: Shortness of Breath Stated complaint: Post-Op Issues Time Seen by Provider: 10/07/24 09:06 Source: patient, family, RN notes reviewed Mode of arrival: ambulatory Limitations: no limitations - History of Present Illness Initial comments: Patient is a 59-year-old male present to the emergency department with concerns with difficulty breathing. Patient did have wedge resection done around [address] Espino. Patient has felt short of breath since that time. Patient did have chest tubes in place however those have been removed. Symptoms have been persistent. Patient did have an outpatient chest x-ray done with Dr. Forrest and was advised to come the emergency department with concern for hyd ropneumothorax. Patient does feel short of breath. - Related Data Home Medications Medication Instructions Recorded Confirmed Acetaminophen Tab [Tylenol] 1,000 mg PO Q6HR PRN 07/24/23 09/03/24 Amitriptyline HCl [Elavil] 20 mg PO HS 07/24/23 09/03/24 Ergocalciferol [Vitamin D2 (1250 2,000 units PO DAILY 07/24/23 09/03/24 Mcg = 34781 Iu)] Evolocumab [Repatha Sureclick] 0 mg SQ [id number] 07/24/23 09/03/24 Hydroxychloroquine Sulfate 200 mg PO BID 07/24/23 09/03/24 [Plaquenil] Montelukast Sodium 10 mg PO HS 07/24/23 09/03/24 Verapamil [Isoptin] 120 mg PO HS 07/24/23 09/03/24 Albuterol Sulfate [Albuterol 1 inh INHALATION DIRECTED 09/03/24 09/03/24 Sulfate Hfa] Fluticasone Propion/Salmeterol 1 inh INHALATION BID 09/03/24 09/03/24 [Fluticasone-Salmeterol 250-50] Tiotropium 2.5 Mcg/Puff [Spiriva 2 puff INHALATION DAILY 09/03/24 09/03/24 Respimat 2.5 Mcg] Previous Rx's Medication Instructions Recorded Metoprolol Tartrate [Lopressor] 25 mg PO BID #60 tab 09/12/24 Sennosides-Docusate Sodium 2 each PO HS PRN tab 09/12/24 [Senokot-S] traMADol HCl [Ultram] 50 mg PO QID PRN #12 tab 09/12/24 traMADol HCL 100 mg PO Q6H #28 tab 09/16/24 Allergies Allergy/AdvReac Type Severity Reaction Status Date / Time hydrocodone [From Vicodin] Allergy "I lost my Verified 09/05/24 09:31 mind." Review of Systems ROS Statement: Those systems with pertinent positive or pertinent negative responses have been documented in the HPI. ROS Other: All systems not noted in ROS Statement are negative. Respiratory: Reports: as per HPI, dyspnea Gastrointestinal: Denies: abdominal pain Musculoskeletal: Denies: back pain Past Medical History Past Medical History: Cancer, COPD, GERD/Reflux, Hyperlipidemia Additional Past Medical History / Comment(s): emphysema, mass in lung??, lupus, History of Any Multi-Drug Resistant Organisms: None Reported Additional Past Surgical History / Comment(s): testicle surgery, throat surgery, partial left lung removed Additional Past Anesthesia/Blood Transfusion Reaction / Comment(s): no blood tx hx Past Psychological History: No Psychological Hx Reported Smoking Status: Former smoker - Past Family History Father Family Medical History: No Reported History General Exam Limitations: no limitations General appearance: alert Head exam: Present: normocephalic Eye exam: Present: normal appearance Neck exam: Present: normal inspection Respiratory exam: Present: decreased breath sounds (Left, more lower) Cardiovascular Exam: Present: tachycardia GI/Abdominal exam: Present: soft. Absent: tenderness Extremities exam: Present: normal inspection. Absent: pedal edema, calf tenderness Neurological exam: Present: alert Psychiatric exam: Present: normal affect, normal mood Skin exam: Present: normal color Course Vital Signs 10/07/24 10/07/24 10/07/24 09:02 09:18 09:22 Temperature 98.3 F Pulse Rate 134 H 123 H Respiratory 24 24 24 Rate Blood Pressure 97/66 98/78 O2 Sat by Pulse 97 97 Oximetry EKG Findings - EKG Results: EKG: interpreted by ERMD, sinus rhythm, normal axis, normal QRS, normal ST/T EKG shows: tachycardia Medical Decision Making - Medical Decision Making Was pt. sent in by a medical professional or institution (, PA, VAULT WORKER, urgent care, hospital, or residential...) When possible be specific @ -Patient was sent in by Dr. Damon. Did you speak to anyone other than the patient for history (EMS, parent, family, police, friend...)? What history was obtained from this source @ -I did speak to Dr. Francisco regarding patient's symptoms and chest x-ray results Did you review nursing and triage notes (agree or disagree)? Why? @ -I reviewed and agree with nursing and triage notes Were old charts reviewed (outside hosp., previous admission, EMS record, old EKG, old radiological studies, urgent care reports/EKG's, residential records)? Report findings @ -Previous admission and previous chest x-rays reviewed showing hydro pneumothorax however not as severe as today Differential Diagnosis (chest pain, altered mental status, abdominal pain women, abdominal pain men, vaginal bleeding, weakness, fever, dyspnea, syncope, headache, dizziness, GI bleed, back pain, seizure, CVA, palpatations, mental health, musculoskeletal)? @ -Differential Dyspnea: Coronary syndrome, arrhythmia, tamponade, asthma, COPD, pulmonary embolism, pneumonia, pneumothorax, pulmonary effusion, anaphylaxis, diabetic ketoacidosis, flailed chest, pulmonary contusion, diaphragmatic rupture, anemia, neuromuscular, this is not meant to be an all-inclusive list. EKG interpreted by me (3pts min.). @ -As above X-rays interpreted by me (1pt min.). @ -Chest x-ray shows large left hydrothorax with potential pneumothorax. CT interpreted by me (1pt min.). @ -None done U/S interpreted by me (1pt. min.). @ -None done What testing was considered but not performed or refused? (CT, X-rays, U/S, labs)? Why? @ -None What meds were considered but not given or refused? Why? @ -None Did you discuss the management of the patient with other professionals (professionals i.e. , PA, VAULT WORKER, lab, RT, psych nurse, criminal justice social worker, hydraulic rubbish compactor mechanic, teacher, press officer, top case assembler)? Give summary @ -Case discussed with practitioner Clementine who will consult with Dr. Espino who is currently in surgery. She agrees to hold on any chest tube until they evaluate patient. Case also discussed with Dr. Patton who will admit overnight while he Was smoking cessation discussed for >3mins.? @ -No Was critical care preformed (if so, how long)? @ -No Were there social determinants of health that impacted care today? How? (Homelessness, low income, unemployed, alcoholism, drug addiction, transportation, low edu. Level, literacy, decrease access to med. care, longterm, rehab)? @ -No Was there de-escalation of care discussed even if they declined (Discuss DNR or withdrawal of care, Hospice)? DNR status @ -No What co-morbidities impacted this encounter? (DM, HTN, Smoking, COPD, CAD, Cancer, CVA, ARF, Chemo, Hep., AIDS, mental health diagnosis, sleep apnea, morbid obesity)? @ -Recent resection of portion of lung Was patient admitted / discharged? Hospital course, mention meds given and route, prescriptions, significant lab abnormalities, going to OR and other pertinent info. @ -Patient presents with persistent dyspnea, especially with exertion. Tachycardia. Patient placed on oxygen and will be admitted pending cardiothoracic consult. Patient and family updated. Admission orders written. Undiagnosed new problem with uncertain prognosis? @ -No Drug Therapy requiring intensive monitoring for toxicity (Heparin, Nitro, Insulin, Cardizem)? @ -No Were any procedures done? @ -No Diagnosis/symptom? @ -Hydropneumothorax left Acute, or Chronic, or Acute on Chronic? @ -Acute on chronic Uncomplicated (without systemic symptoms) or Complicated (systemic symptoms)? @ -Complicated with tachycardia Side effects of treatment? @ -No Exacerbation, Progression, or Severe Exacerbation? @ -No Poses a threat to life or bodily function? How? (Chest pain, [place], [place], pneumonia, PE, COPD, DKA, ARF, appy, cholecystitis, CVA, Diverticulitis, Homicidal, Suicidal, threat to staff... and all critical care pts) @ -Threat to cardiac and pulmonary function - Lab Data Result diagrams: 10/07/24 09:27 10/07/24 09:27 Lab Results 10/07/24 10/07/24 10/07/24 Range/Units 09:27 09: 09:27 WBC 12.91 H (4.50-10.00) 10*3/uL RBC 3.57 L (4.40-5.60) 10*6/uL Hgb 9.8 L (13.0-17.0) g/dL Hct 30.5 L (39.6-50.0) % MCV 85.4 (80.0-97.0) fL MCH 27.5 (27.0-32.0) pg MCHC 32.1 (32.0-37.0) g/dL Plt Count 767 H (140-440) 10*3/uL MPV 8.1 L (9.5-12.2) fL Immature Gran % (Auto) 2.5 % Neutrophils % 77.0 % Lymphocytes % 13.7 % Monocytes % 5.7 % Eosinophils % 0.6 % Basophils % 0.5 % Immature Gran # 0.32 H (0.00-0.04) 10*3/uL Neutrophils # 9.93 H (1.80-7.70) 10*3/uL Lymphocytes # 1.77 (0.90-5.00) 10*3/uL Monocytes # 0.74 (0.20-1.00) 10*3/uL Eosinophils # 0.08 (0.04-0.35) 10*3/uL Basophils # 0.07 (0.00-0.10) 10*3/uL PT 13.7 H (10.0-12.5) sec INR 1.3 H (<1.2) APTT 34.2 H (22.0-30.0) sec Sodium 132 L (137-145) mmol/L Potassium 4.5 (3.5-5.1) mmol/L Chloride 98 (98-107) mmol/L Carbon Dioxide 27 (22-30) mmol/L Anion Gap 7 mmol/L BUN 9 (9-20) mg/dL Creatinine 0.56 L (0.66-1.25) mg/dL Est GFR (CKD-EPI)AfAm >90 (>60 ml/min/1.73 sqM) Est GFR (CKD-EPI)NonAf >90 (>60 ml/min/1.73 sqM) Glucose 126 H (74-99) mg/dL Plasma Lactic Acid Louie (0.7-2.0) mmol/L Calcium 9.4 (8.4-10.2) mg/dL Total Bilirubin 0.4 (0.2-1.3) mg/dL AST 25 (17-59) U/L ALT 19 (4-49) U/L Alkaline Phosphatase 150 H (38-126) U/L Total Protein 7.0 (6.3-8.2) g/dL Albumin 3.1 L (3.5-5.0) g/dL 10/07/24 Range/Units 09:27 WBC (4.50-10.00) 10*3/uL RBC (4.40-5.60) 10*6/uL Hgb (13.0-17.0) g/dL Hct (39.6-50.0) % MCV (80.0-97.0) fL MCH (27.0-32.0) pg MCHC (32.0-37.0) g/dL Plt Count (140-440) 10*3/uL MPV (9.5-12.2) fL Immature Gran % (Auto) % Neutrophils % % Lymphocytes % % Monocytes % % Eosinophils % % Basophils % % Immature Gran # (0.00-0.04) 10*3/uL Neutrophils # (1.80-7.70) 10*3/uL Lymphocytes # (0.90-5.00) 10*3/uL Monocytes # (0.20-1.00) 10*3/uL Eosinophils # (0.04-0.35) 10*3/uL Basophils # (0.00-0.10) 10*3/uL PT (10.0-12.5) sec INR (<1.2) APTT (22.0-30.0) sec Sodium (137-145) mmol/L Potassium (3.5-5.1) mmol/L Chloride (98-107) mmol/L Carbon Dioxide (22-30) mmol/L Anion Gap mmol/L BUN (9-20) mg/dL Creatinine (0.66-1.25) mg/dL Est GFR (CKD-EPI)AfAm (>60 ml/min/1.73 sqM) Est GFR (CKD-EPI)NonAf (>60 ml/min/1.73 sqM) Glucose (74-99) mg/dL Plasma Lactic Acid Louie 1.4 (0.7-2.0) mmol/L Calcium (8.4-10.2) mg/dL Total Bilirubin (0.2-1.3) mg/dL AST (17-59) U/L ALT (4-49) U/L Alkaline Phosphatase (38-126) U/L Total Protein (6.3-8.2) g/dL Albumin (3.5-5.0) g/dL Disposition Clinical Impression: Hydropneumothorax Disposition: ADMITTED IP TO THIS [facility] Condition: Serious Is patient prescribed a controlled substance at d/c from ED?: No Referrals: Khoi Rodriguez DO [Primary Care Provider] - 1-2 days Time of Disposition: 09:56
--- NOTE | 2024-10-07 09:30 | XR ---
EXAMINATION TYPE: XR chest 1V portable DATE OF EXAM: 10/07/2024 9:22 AM COMPARISON: Earlier today CLINICAL INDICATION: Male, 59 years old with history of linda, shortness of breath FINDINGS: Postsurgical volume loss left hemithorax. Exam is compared to earlier today. Large left-sided hydropn eumothorax redemonstrated. Pleural fluid extends to the upper third chest level. Suspect some change in positioning casting greater degree of hazy density at the apex. IMPRESSION: Ongoing postsurgical volume loss left hemithorax with redemonstration of a large left-sided hydropneu mothorax. Pleural fluid extends to the upper chest level. Suspect relatively similar exam from [place] this morning. [facility], , 10/07/2024 9:28 AM
[2024-10-07 09:33] LABS: Basophils # (A) 0.07 10*3/uL (0.00-0.10); Basophils % (A) 0.5 %; Eosinophils # (A) 0.08 10*3/uL (0.04-0.35); Eosinophils % (A) 0.6 %; HCT 30.5 % (39.6-50.0); HGB 9.8 g/dL (13.0-17.0); Lymphocytes # (A) 1.77 10*3/uL (0.90-5.00); Lymphocytes % (A) 13.7 %; MCH 27.5 pg (27.0-32.0); MCHC 32.1 g/dL (32.0-37.0); MCV 85.4 fL (80.0-97.0); Mean Platelet Volume 8.1 fL (9.5-12.2); Monocytes # (A) 0.74 10*3/uL (0.20-1.00); Monocytes % (A) 5.7 %; Neutrophils # (A) 9.93 10*3/uL (1.80-7.70); Platelet Count 767 10*3/uL (140-440); RBC 3.57 10*6/uL (4.40-5.60); RDW 16.4 % (11.5-14.5); WBC 12.91 10*3/uL (4.50-10.00)
[2024-10-07 09:42] LABS: INR 1.3 (<1.2); Partial Thromboplastin Time 34.2 sec (22.0-30.0); Prothrombin Time 13.7 sec (10.0-12.5)
[2024-10-07 09:47] LABS: ALT 19 U/L (4-49); AST 25 U/L (17-59); African American GFR (CKD) >90 (>60 ml/min/1.73 sqM); Albumin 3.1 g/dL (3.5-5.0); Alkaline Phosphatase 150 U/L (38-126); Anion Gap 7 mmol/L; Blood Urea Nitrogen 9 mg/dL (9-20); Calcium 9.4 mg/dL (8.4-10.2); Carbon Dioxide 27 mmol/L (22-30); Chloride 98 mmol/L (98-107); Glucose 126 mg/dL (74-99); Non-African American GFR(CKD) >90 (>60 ml/min/1.73 sqM); Potassium 4.5 mmol/L (3.5-5.1); Sodium 132 mmol/L (137-145); Total Bilirubin 0.4 mg/dL (0.2-1.3)
[2024-10-07] MEDS ORDERED: HYDROmorphone 0.5 MG/0.5 ML SYRINGE IVP PRN (09:57)
[2024-10-07] MEDS ORDERED: NALOXONE 0.4 MG/ML 1 ML VIAL IV PRN (09:57)
[2024-10-07] MEDS ORDERED: ACETAMINOPHEN TAB 325 MG TAB PO PRN (09:57)
[2024-10-07] MEDS ORDERED: ALBUTEROL NEBULIZED 2.5 MG/3 ML INHALATION PRN (11:36)
--- NOTE | 2024-10-07 11:42 | P.GSCN ---
History of Present Illness Consult date: 10/07/24 Reason for Consult: Left hydropneumothorax Requesting physician: Zeyad Figueroa History of present illness: This is a 59-year-old gentleman who follows outpatient with Dr. Rodriguez for internal medicine and Dr. Red for pulmonology. He has a previous medical history of recent lingulectomy, previous tobacco dependence, COPD, hyperlipidemia, lupus, GERD. He was followed by Dr. Espino for some time for right upper lobe lesion which remained stable for over 2 years and ultimately did not undergo operation. He developed a new lesion in the left upper lobe which had increased over time. He had continued to smoke. He was referred back to Dr. Espino by Dr. 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 He had a bedside spirometry which was borderline and further underwent complete pulmonary function test, results of which were consistent with a bedside spirometry. Discussion took place between Dr. Red and Dr. Espino and decision was made that surgery should consist of lingulectomy which was completed September 05, 2024. His recovery was uneventful except airleak which took several days to resolve. Chest tube was discontinued once airleak was gone, there was evidence of hydrothorax on chest x-ray at discharge which was expected, and he was discharged to home on postop day #7. He did follow-up with Dr. Espino in the office about 10 days ago. He saw his primary care physician who recommended he have a chest x-ray which demonstrated continuing left-sided hydropneumothorax with fluid now extending to the upper third of the chest which is a bit worse than it was at discharge. Due to this finding the patient was recommended to report to [facility] emergency room by his primary care physician for evaluation and treatment. The patient does report shortness of breath since discharge which has gotten progressively worse over time. He is not able to accomplish much activity without stopping due to shortness of breath. In addition he states food taste terrible and he has been unable to eat very much, has lost significant weight. 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, lupus, History of Any Multi-Drug Resistant Organisms: None Reported Additional Past Surgical History / Comment(s): testicle surgery, throat surgery, left lingulectomy (bisegmentectomy) September 05, 2024 Additional Past Anesthesia/Blood Transfusion Reaction / Comm: no blood tx hx Past Psychological History: No Psychological Hx Reported Smoking Status: Former smoker Past Alcohol Use History: None Reported Past Drug Use History: None Reported - Past Family History Father Family Medical History: No Reported History Medications and Allergies Home Medications Medication Instructions Recorded Confirmed Type Amitriptyline HCl [Elavil] 20 mg PO HS 07/24/23 10/07/24 History Evolocumab [Repatha Sureclick] 140 mg SQ [id number] 07/24/23 10/07/24 History Hydroxychloroquine Sulfate 200 mg PO HS 07/24/23 10/07/24 History [Plaquenil] Montelukast Sodium 10 mg PO HS 07/24/23 10/07/24 History Albuterol Sulfate [Albuterol 2 puff INHALATION RT-Q4H PRN 09/03/24 10/07/24 History Sulfate Hfa] Fluticasone Propion/Salmeterol 1 puff INHALATION RT-BID 09/03/24 10/07/24 History [Fluticasone-Salmeterol 250-50] Tiotropium 2.5 Mcg/Puff [Spiriva 1 puff INHALATION RT-BID 09/03/24 10/07/24 History Respimat 2.5 Mcg] Ferrous Sulfate [Feosol] 325 mg PO DAILY 10/07/24 10/07/24 History Fluconazole [Diflucan] 100 mg PO DAILY 10/07/24 10/07/24 History Loratadine/Pseudoephedrine 1 tab PO DAILY PRN 10/07/24 10/07/24 History [Loratadine-D 24Hr Tablet] Sildenafil Citrate [Sildenafil] 40 - 60 mg PO DAILY PRN 10/07/24 10/07/24 History Verapamil HCl [Calan] 120 mg PO HS 10/07/24 10/07/24 History Allergies Allergy/AdvReac Type Severity Reaction Status Date / Time hydrocodone [From Vicodin] Allergy "I lost my Verified 10/07/24 10:27 mind." Surgical - Exam Vital Signs Temp Pulse Resp BP Pulse Ox 98.3 F 134 H 24 97/66 97 10/07/24 09:02 10/07/24 09:02 10/07/24 09:02 10/07/24 09:02 10/07/24 09:02 CONSTITUTIONAL: Awake and alert, appears somewhat comfortable at rest, cooperative EYES: Pupils equal, round, reactive to light, normal ocular movement ENT: Moist mucous membranes without oral lesions present NECK: No masses, no bruits, trachea midline RESPIRATORY: Lungs sounds very diminished on the left. Respirations even, slightly tachypneic. Currently on room air with oxygen saturation 97-100%. Strong cough CARDIOVASCULAR: S1, S2 present. Regular rate and rhythm, sinus tach on telemetry. Palpable peripheral pulses bilaterally. No edema present. No calf pain or tenderness noted GASTROINTESTINAL: Abdomen soft, nontender, nondistended without masses or organomegaly noted. There is no rebound or guarding present. Active bowel sounds present 4 quadrants. GENITOURINARY: Deferred INTEGUMENTARY: Skin is warm and dry NEUROLOGIC: Cranial nerves II through XII intact, normal coordination, no obvious motor or sensory deficits, speech is normal MUSKULOSKELETAL: Able to move all extremities, strength equal bilaterally, normal posture PSYCHIATRIC: Alert and oriented to person place and time, appropriate affect, intact judgment and insight Results - Labs 10/07/24 09:27 10/07/24 09:27 Abnormal Lab Results - Last 24 Hours (Table) 10/07/24 10/07/24 10/07/24 Range/Units 09:27 09:27 09:27 WBC 12.91 H (4.50-10.00) 10*3/uL RBC 3.57 L (4.40-5.60) 10*6/uL Hgb 9.8 L (13.0-17.0) g/dL Hct 30.5 L (39.6-50.0) % Plt Count 767 H (140-440) 10*3/uL MPV 8.1 L (9.5-12.2) fL Immature Gran # 0.32 H (0.00-0.04) 10*3/uL Neutrophils # 9.93 H (1.80-7.70) 10*3/uL PT 13.7 H (10.0-12.5) sec INR 1.3 H (<1.2) APTT 34.2 H (22.0-30.0) sec Sodium 132 L (137-145) mmol/L Creatinine 0.56 L (0.66-1.25) mg/dL Glucose 126 H (74-99) mg/dL Alkaline Phosphatase 150 H (38-126) U/L Albumin 3.1 L (3.5-5.0) g/dL Diabetes panel 10/07/24 Range/Units 09:27 Sodium 132 L (137-145) mmol/L Potassium 4.5 (3.5-5.1) mmol/L Chloride 98 (98-107) mmol/L Carbon Dioxide 27 (22-30) mmol/L BUN 9 (9-20) mg/dL Creatinine 0.56 L (0.66-1.25) mg/dL Glucose 126 H (74-99) mg/dL Calcium 9.4 (8.4-10.2) mg/dL AST 25 (17-59) U/L ALT 19 (4-49) U/L Alkaline Phosphatase 150 H (38-126) U/L Total Protein 7.0 (6.3-8.2) g/dL Albumin 3.1 L (3.5-5.0) g/dL Calcium panel 10/07/24 Range/Units 09:27 Calcium 9.4 (8.4-10.2) mg/dL Albumin 3.1 L (3.5-5.0) g/dL Pituitary panel 10/07/24 Range/Units 09:27 Sodium 132 L (137-145) mmol/L Potassium 4.5 (3.5-5.1) mmol/L Chloride 98 (98-107) mmol/L Carbon Dioxide 27 (22-30) mmol/L BUN 9 (9-20) mg/dL Creatinine 0.56 L (0.66-1.25) mg/dL Glucose 126 H (74-99) mg/dL Calcium 9.4 (8.4-10.2) mg/dL Adrenal panel 10/07/24 Range/Units 09:27 Sodium 132 L (137-145) mmol/L Potassium 4.5 (3.5-5.1) mmol/L Chloride 98 (98-107) mmol/L Carbon Dioxide 27 (22-30) mmol/L BUN 9 (9-20) mg/dL Creatinine 0.56 L (0.66-1.25) mg/dL Glucose 126 H (74-99) mg/dL Calcium 9.4 (8.4-10.2) mg/dL Total Bilirubin 0.4 (0.2-1.3) mg/dL AST 25 (17-59) U/L ALT 19 (4-49) U/L Alkaline Phosphatase 150 H (38-126) U/L Total Protein 7.0 (6.3-8.2) g/dL Albumin 3.1 L (3.5-5.0) g/dL - Imaging Chest x-ray: report reviewed, image reviewed Assessment and Plan Assessment: Continued left-sided hydropneumothorax, increased from discharge Shortness of breath secondary to above Lack of taste, lack of appetite, weight loss Medical debility History of recent lingulectomy, final pathology consistent with necrotizing granulomas with fibrosis, no malignancy found Previous tobacco dependence COPD Hyperlipidemia Lupus GERD Plan: The patient was seen and examined sitting up on a cart in the emergency room with present. Chart/diagnostics reviewed. The case will be discussed in great detail with Dr. Espino. The patient reports continued and increasing shortness of breath and lack of ability to function normally. He states he has not been able to eat hardly any food, he does tolerate some Gatorade. He does state he has pain to his left chest surgical site all the way through and across his chest. Chest x-ray reviewed and compared with x-ray discharge, there does appear to be more fluid than he had at discharge. Oxygen saturation remains in the high 90s on room air. Will discuss treatment options once case discussed with Dr. Espino. More recommendations to follow. Thank you for this consult, we will continue to follow along and make further recommendations as appropriate. I have personally seen and examined the patient, performed the documentation and the assessment and plan as written. Number of minutes spent on the visit: 30. OLGA Etienne
[2024-10-07] MEDS: FLUCONAZOLE 100 MG TAB PO SCH (12:30)
--- NOTE | 2024-10-07 13:31 | P.HPIM ---
History of Present Illness H&P Date: 10/07/24 History of present illness; 59-year-old man PMH of heavy tobacco use with recent cessation, COPD, lupus, GERD, hyperlipidemia for lobe pulmonary nodule s/p thorascopic lingulectomy with mediastinal lymph node dissection on 09/05/[address] Espino. He presented to the emergency department with concerns of increased difficulty of breathing. He states that since he underwent surgery, he has had shortness of breath that he feels has gotten progressively worse over time. On review of earlier records he had an expected hydrothorax on x-ray prior to discharge. He followed up outpatient with Dr. Espino in his office about 1.5 weeks ago. He was seen by his primary care physician who recommended a repeat chest x-ray which showed a continued hydropneumothorax on the left side. He does report having had progressively worsening shortness of breath and inability to accomplish much activity without stopping due to this. Additionally, he noted that the overall taste of food has been very poor which is made him unable to eat, as he states that nothing tastes good, leading to continued weight loss. Labratory review: -WBCs 12.9, hemoglobin 9.8, hematocrit 30.5, platelet 767; sodium 132, potassium 4.5, BUN 9, creatinine 0.56, lactic acid 1.4, calcium 9.4, total bilirubin 0.4, AST 25, ALT 19, alkaline phosphatase 150 Imaging: -Chest x-ray independently read and reviewed showed ongoing postsurgical volume loss left hemithorax as well as redemonstration of a large left-sided hydropneum othorax -EKG done in the ER showed heart rate of 22, sinus tachycardia, no ST segment elevation or depression seen, no T-wave inversions seen. Vitals: -On arrival: Blood pressure 97/66, heart rate 134, respiratory rate 24, SpO2 97% on room air -Most recently: Blood pressure 93/76, heart rate 114, respiratory rate 20, SpO2 100% on 2 L nasal cannula Patient admitted to internal medicine service REVIEW OF SYSTEMS: Pertinent positives and negatives noted in HPI. The rest of the 14-point review of systems is negative. Physical Exam: General: nontoxic, no distress, appears at stated age Derm: warm, dry, intact Head: atraumatic, normocephalic, symmetric Eyes: EOMI, anicteric sclera Mouth: no lip lesion, mucus membranes moist Cardiovascular: S1 S2 reg, no murmur, rubs, or gallops Lungs: Dminished breath sounds BL, even more diminished on the left MSK: Exquisite tenderness to palpation lateral aspect of left rib cage Abdominal: soft, non-tender to palpataion, no appreciable organomegaly Extremities: no gross muscle atrophy, no edema, no contractures Neuro: Alert, Oriented, CNII-XII grossly intact, gait normal Psych: well appearing, appropriate affect Assessment and plan 59-year-old man PMH of heavy tobacco use with recent cessation, COPD, lupus, GERD, hyperlipidemia for lobe pulmonary nodule s/p thorascopic lingulectomy with mediastinal lymph node dissection on 09/05/[address] Espino. He presented to the emergency department with concerns of increased difficulty of breathing. #Left hydropneumothorax #s/p thorascopic lingulectomy with mediastinal lymph node dissection on 09/05/2024 -CT surgery following #SIRS criteria met #Leukocytosis, possibly reactive #Thrombocytosis #Tachycardia -Blood cultures ordered -Receiving 1L LR bolus -Monitor CBC and vital signs #Chronic normocytic anemia #Iron deficiency -Continue monitor CBC -Continue 325 mg daily ferrous sulfate & added 1,000 mg Vitamin C daily to improve absorption #Hyponatremia, likely hypovolemic -Receiving 1L LR bolus -Monitor BMP Chronic: #COPD #Lupus #Cluster headaches -Resume home medications unless specified -Hold Norvasc d/t soft blood pressures, continue to re-assess GI prophylaxis: None DVT prophylaxis: None for now, determine need for possible surgical intervention The patient is admitted as observation with an anticipated less than than 2 midnight stay for evaluation of left sided hydorpneumothorax. CODE STATUS: Full code Discussed with: Patient Anticipated discharge place: Home Dictation was produced using [employer] dictation software. please excuse any grammatical, word or spelling errors. Jose Almonte MD PGY-1 IM I have seen and evaluated the patient today. Discussed with the resident and agree with the residents finding and plan as documented in the resident's note. Changes highlighted in blue font. 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, lupus, History of Any Multi-Drug Resistant Organisms: None Reported Additional Past Surgical History / Comment(s): testicle surgery, throat surgery, partial left lung removed Additional Past Anesthesia/Blood Transfusion Reaction / Comment(s): no blood tx hx Past Psychological History: No Psychological Hx Reported Smoking Status: Former smoker - Past Family History Father Family Medical History: No Reported History Medications and Allergies Home Medications Medication Instructions Recorded Confirmed Type Amitriptyline HCl [Elavil] 20 mg PO HS 07/24/23 10/07/24 History Evolocumab [Repatha Sureclick] 140 mg SQ [id number] 07/24/23 10/07/24 History Hydroxychloroquine Sulfate 200 mg PO HS 07/24/23 10/07/24 History [Plaquenil] Montelukast Sodium 10 mg PO HS 07/24/23 10/07/24 History Albuterol Sulfate [Albuterol 2 puff INHALATION RT-Q4H PRN 09/03/24 10/07/24 History Sulfate Hfa] Fluticasone Propion/Salmeterol 1 puff INHALATION RT-BID 09/03/24 10/07/24 History [Fluticasone-Salmeterol 250-50] Tiotropium 2.5 Mcg/Puff [Spiriva 1 puff INHALATION RT-BID 09/03/24 10/07/24 History Respimat 2.5 Mcg] Ferrous Sulfate [Feosol] 325 mg PO DAILY 10/07/24 10/07/24 History Fluconazole [Diflucan] 100 mg PO DAILY 10/07/24 10/07/24 History Loratadine/Pseudoephedrine 1 tab PO DAILY PRN 10/07/24 10/07/24 History [Loratadine-D 24Hr Tablet] Sildenafil Citrate [Sildenafil] 40 - 60 mg PO DAILY PRN 10/07/24 10/07/24 History Verapamil HCl [Calan] 120 mg PO HS 10/07/24 10/07/24 History Allergies Allergy/AdvReac Type Severity Reaction Status Date / Time hydrocodone [From Vicodin] Allergy "I lost my Verified 10/07/24 10:27 mind." Physical Exam Vitals: Vital Signs Temp Pulse Resp BP Pulse Ox 10/07/24 10:00 114 H 20 93/76 100 10/07/24 09:22 123 H 24 98/78 97 10/07/24 09:18 24 10/07/24 09:02 98.3 F 134 H 24 97/66 97 Intake and Output 10/06/24 10/07/24 10/07/24 22:59 06:59 14:59 Other: Weight 56.699 kg Results CBC & Chem 7: 10/07/24 09:27 10/07/24 09:27 Labs: Abnormal Lab Results - Last 24 Hours (Table) 10/07/24 10/07/24 10/07/24 Range/Units 09:27 09:27 09:27 WBC 12.91 H (4.50-10.00) 10*3/uL RBC 3.57 L (4.40-5.60) 10*6/uL Hgb 9.8 L (13.0-17.0) g/dL Hct 30.5 L (39.6-50.0) % Plt Count 767 H (140-440) 10*3/uL MPV 8.1 L (9.5-12.2) fL Immature Gran # 0.32 H (0.00-0.04) 10*3/uL Neutrophils # 9.93 H (1.80-7.70) 10*3/uL PT 13.7 H (10.0-12.5) sec INR 1.3 H (<1.2) APTT 34.2 H (22.0-30.0) sec Sodium 132 L (137-145) mmol/L Creatinine 0.56 L (0.66-1.25) mg/dL Glucose 126 H (74-99) mg/dL Alkaline Phosphatase 150 H (38-126) U/L Albumin 3.1 L (3.5-5.0) g/dL
[2024-10-07] MEDS: LACTATED RINGERS 1,000 ML IV ONE (14:03)
[2024-10-07] MEDS: ASCORBIC ACID 500 MG TAB PO SCH (14:07)
[2024-10-07] MEDS: polyethylene glycoL 3350 17 GM POWD.PACK PO SCH (14:09)
[2024-10-07] MEDS: traMADol 50 MG TAB PO PRN (14:58)
[2024-10-07] MEDS: SYMBICORT 80-4.5 MCG INHALER INHALATION SCH (19:37)
[2024-10-07] MEDS ORDERED: VERAPAMIL HCL 120 MG PO SCH (21:00)
[2024-10-07] MEDS: MONTELUKAST 10 MG TAB PO SCH (22:02)
[2024-10-07] MEDS: AMITRIPTYLINE HCL 10 MG TAB PO SCH (22:02)
[2024-10-07] MEDS: HYDROXYCHLOROQUINE SULFATE 200 MG TAB PO SCH (22:02)
[2024-10-08 04:01] LABS: Basophils # (A) 0.12 10*3/uL (0.00-0.10); Eosinophils % (A) 1.6 %; HCT 29.2 % (39.6-50.0); HGB 9.1 g/dL (13.0-17.0); Lymphocytes # (A) 3.26 10*3/uL (0.90-5.00); Lymphocytes % (A) 26.2 %; MCHC 31.2 g/dL (32.0-37.0); MCV 86.6 fL (80.0-97.0); Mean Platelet Volume 8.4 fL (9.5-12.2); Monocytes # (A) 1.01 10*3/uL (0.20-1.00); Monocytes % (A) 8.1 %; Neutrophils # (A) 7.57 10*3/uL (1.80-7.70); Neutrophils % (A) 60.9 %; Platelet Count 735 10*3/uL (140-440); RBC 3.37 10*6/uL (4.40-5.60); RDW 16.6 % (11.5-14.5); WBC 12.43 10*3/uL (4.50-10.00)
[2024-10-08 04:17] LABS: ALT 15 U/L (4-49); AST 24 U/L (17-59); African American GFR (CKD) >90 (>60 ml/min/1.73 sqM); Albumin 2.8 g/dL (3.5-5.0); Albumin/Globulin Ratio 0.8; Alkaline Phosphatase 134 U/L (38-126); Anion Gap 7 mmol/L; Blood Urea Nitrogen 7 mg/dL (9-20); Calcium 9.1 mg/dL (8.4-10.2); Carbon Dioxide 26 mmol/L (22-30); Chloride 97 mmol/L (98-107); Globulin 3.6 g/dL; Glucose 93 mg/dL (74-99); Non-African American GFR(CKD) >90 (>60 ml/min/1.73 sqM); Sodium 130 mmol/L (137-145); Total Bilirubin 0.5 mg/dL (0.2-1.3); Total Protein 6.4 g/dL (6.3-8.2)
--- NOTE | 2024-10-08 07:17 | XR ---
EXAMINATION TYPE: XR chest 1V portable DATE OF EXAM: 10/08/2024 6:40 AM COMPARISON: 10/07/2024 CLINICAL INDICATION: Male, 59 years old with history of left hydropneumothorax, , FINDINGS: Redemonstrated postsurgical volume loss left hemithorax with near complete opacification. Pneumothora x cavity at the left apex persists with a extensive effusion and/or consolidation throughout the left side. Hyperinflation and chronic interstitial density on the right suggesting COPD. Some right apica l pleural parenchymal scarring redemonstrated. IMPRESSION: Overall similar appearance to the postsurgical volume loss left hemithorax and large left hydropneumo thorax. [facility], Workstation: [facility], 10/08/2024 7:15 AM
--- NOTE | 2024-10-08 08:34 | P.PN ---
Subjective Progress Note Date: 10/08/24 Principal diagnosis: Continued left-sided hydropneumothorax, anorexia, medical debility. 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 He states yesterday he was given a " powdery mixture" and he did take a tramadol, he states the combination of these meds have significantly improved his pain and shortness of breath. States he has passed a lot of gas and had a bowel movement which has helped tremendously. States he still feels a bit short of breath but better than yesterday. Was able to tolerate a hamburger last night for dinner. Hoping to go home today. Discussed the case with Dr. Espino, reviewed both yesterday's chest x-ray as well as today's. No surgical intervention planned, no chest tube necessary. Patient may be discharged to home from our standpoint, follow-up appointment made with Dr. Espino. Objective - Vital Signs Vital signs: Vital Signs Temp 97.9 F 10/08/24 01:01 Pulse 118 H 10/08/24 01:01 Resp 15 10/08/24 01:01 BP 113/71 10/08/24 01:01 Pulse Ox 92 L 10/08/24 01:01 FiO2 Intake & Output 10/07/24 10/08/24 10/08/24 18:59 06:59 18:59 Weight 56.699 kg 56.699 kg Other: Voiding Method Toilet # Voids 3 - Exam CONSTITUTIONAL: Appears comfortable, cooperative, no acute distress RESPIRATORY: Lungs sounds diminished on the left. Respirations even, nonlabored. Currently on room air with oxygen saturation 96% CARDIOVASCULAR: S1, S2 present. Regular rate and rhythm. Palpable peripheral pulses bilaterally. No edema present. No calf pain or tenderness noted GASTROINTESTINAL: Abdomen soft, nontender, nondistended. Active bowel sounds present 4 quadrants. Tolerating minimal diet. Positive bowel movement. GENITOURINARY: Continues to void INTEGUMENTARY: Skin is warm and dry with evidence of good perfusion. Thoracic incision well approximated NEUROLOGIC: Cranial nerves II through XII intact MUSKULOSKELETAL: Able to move all extremities, strength equal bilaterally, gait normal PSYCHIATRIC: Alert and oriented to person place and time, appropriate affect, intact judgment and insight - Allied health notes Allied health notes reviewed: nursing - Labs CBC & Chem 7: 10/08/24 02:50 10/08/24 02:50 Labs: Abnormal Lab Results - Last 24 Hours (Table) 10/07/24 10/07/24 10/07/24 Range/Units 09:27 09:27 09:27 WBC 12.91 H (4.50-10.00) 10*3/uL RBC 3.57 L (4.40-5.60) 10*6/uL Hgb 9.8 L (13.0-17.0) g/dL Hct 30.5 L (39.6-50.0) % MCHC (32.0-37.0) g/dL RDW (11.5-14.5) % Plt Count 767 H (140-440) 10*3/uL MPV 8.1 L (9.5-12.2) fL Immature Gran # 0.32 H (0.00-0.04) 10*3/uL Neutrophils # 9.93 H (1.80-7.70) 10*3/uL Monocytes # (0.20-1.00) 10*3/uL Basophils # (0.00-0.10) 10*3/uL PT 13.7 H (10.0-12.5) sec INR 1.3 H (<1.2) APTT 34.2 H (22.0-30.0) sec Sodium 132 L (137-145) mmol/L Chloride (98-107) mmol/L BUN (9-20) mg/dL Creatinine 0.56 L (0.66-1.25) mg/dL Glucose 126 H (74-99) mg/dL Alkaline Phosphatase 150 H (38-126) U/L Albumin 3.1 L (3.5-5.0) g/dL 10/08/24 10/08/24 Range/Units 02:50 02:50 WBC 12.43 H (4.50-10.00) 10*3/uL RBC 3.37 L (4.40-5.60) 10*6/uL Hgb 9.1 L (13.0-17.0) g/dL Hct 29.2 L (39.6-50.0) % MCHC 31.2 L (32.0-37.0) g/dL RDW 16.6 H (11.5-14.5) % Plt Count 735 H (140-440) 10*3/uL MPV 8.4 L (9.5-12.2) fL Immature Gran # 0.27 H (0.00-0.04) 10*3/uL Neutrophils # (1.80-7.70) 10*3/uL Monocytes # 1.01 H (0.20-1.00) 10*3/uL Basophils # 0.12 H (0.00-0.10) 10*3/uL PT (10.0-12.5) sec INR (<1.2) APTT (22.0-30.0) sec Sodium 130 L (137-145) mmol/L Chloride 97 L (98-107) mmol/L BUN 7 L (9-20) mg/dL Creatinine 0.53 L (0.66-1.25) mg/dL Glucose (74-99) mg/dL Alkaline Phosphatase 134 H (38-126) U/L Albumin 2.8 L (3.5-5.0) g/dL - Imaging and Cardiology Chest x-ray: report reviewed, image reviewed Assessment and Plan Assessment: Continued left-sided hydropneumothorax, increased from discharge Shortness of breath secondary to above Lack of taste, lack of appetite, weight loss Medical debility History of recent lingulectomy, 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 Espino, reviewed both yesterday's chest x-ray as well as today's, no surgical intervention planned, no chest tube necessary Recommend continuing MiraLAX daily, continue with tramadol for breakthrough pain Increase activity as tolerated Encourage oral intake, patient counseled regarding need for increased protein for healing Patient has appointment already with Dr. Red on , follow-up made with Dr. Espino and placed on discharge plan Patient may be discharged to home from our standpoint
[2024-10-08 09:04] VITALS: BP 105/73; PULSE 110; RESP 17; TEMP 98.2
[2024-10-08] MEDS: FERROUS SULFATE 325 MG TAB PO SCH (09:21)
[2024-10-08] MEDS: TIOTROPIUM 2.5 MCG INHALER INHALATION SCH (09:38)
--- NOTE | 2024-10-08 11:18 | P.DS ---
Providers Date of admission: 10/07/24 09:57 Expected date of discharge: 10/08/24 Attending physician: Ari Christensen Consults: 10/07/24 09:57 Consult Physician Stat Consulting Provider: Bharathi Espino Consult Reason/Comments: Left hydropneumothorax Do you want consulting provider notified?: Already Contacted Primary care physician: Khoi Rodriguez Hospital Course: Discharge diagnoses; #Left hydropneumothorax #s/p thorascopic lingulectomy with mediastinal lymph node dissection on 09/05/2024 #SIRS criteria met #Leukocytosis, possibly reactive #Thrombocytosis #Tachycardia #Chronic normocytic anemia #Iron deficiency #Hyponatremia #COPD #Lupus #Cluster headaches Hospital course; 59-year-old man PMH of heavy tobacco use with recent cessation, COPD, lupus, GERD, hyperlipidemia for lobe pulmonary nodule s/p thorascopic lingulectomy with mediastinal lymph node dissection on 09/05/[address] Espino. He presented to the emergency department with concerns of increased difficulty of breathing. He states that since he underwent surgery, he has had shortness of breath that he feels has gotten progressively worse over time. On review of earlier records he had an expected hydrothorax on x-ray prior to discharge. He followed up outpatient with Dr. Espino in his office about 1.5 weeks ago. He was seen by his primary care physician who recommended a repeat chest x-ray which showed a continued hydropneumothorax on the left side. He does report having had progressively worsening shortness of breath and inability to accomplish much activity without stopping due to this. Which caused him to present to the emergency department for further evaluation. While here he was seen and evaluated by CT surgery. While here, he received MiraLAX and tramadol and he notes that the combination helped significantly with his pain and shortness of breath. He states that he passed a lot of gas and had a bowel movement which he feels helped tremendously. Per CT surgery, no surgical inventions planned and there is no necessity for chest tube and he is able to be discharged home from their standpoint. He will be sent home with a prescription for MiraLAX, a few days worth of tramadol for any breakthrough pain. Discussed with the patient, and he verbalized understanding, and the importance of regular follow-up consistently with his primary care physician, CT surgery and his legal services manager. Additionally, discussed with the patient the importance of improved dietary habits, eating whatever he can that taste okay so has not have any additional weight loss. He is agreeable and understands all of this, and is excited to be discharged today. Physical Exam: General: nontoxic, no distress, appears at stated age Derm: warm, dry, intact Head: atraumatic, normocephalic, symmetric Eyes: EOMI, anicteric sclera Mouth: no lip lesion, mucus membranes moist Cardiovascular: S1 S2 reg, no murmur, rubs, or gallops Lungs: Dminished breath sounds BL, even more diminished on the left MSK: Exquisite tenderness to palpation lateral aspect of left rib cage - improved today Abdominal: soft, non-tender to palpataion, no appreciable organomegaly Extremities: no gross muscle atrophy, no edema, no contractures Neuro: Alert, Oriented, CNII-XII grossly intact, gait normal Psych: well appearing, appropriate affect Dictation was produced using [employer] dictation software. please excuse any grammatical, word or spelling errors. Jose Almonte MD PGY-1 IM A total of 38 minutes of time were spent preparing this complex discharge summary. Patient was discharged on 10/08/2024 at 933. I have seen and evaluated the patient today. Discussed with the resident and agree with the residents finding and plan as documented in the resident's note. Changes highlighted in blue font. Patient Condition at Discharge: Fair Plan - Discharge Summary Discharge Rx Participant: Yes New Discharge Prescriptions: New polyethylene glycoL 3350 [Miralax] 17 gm PO DAILY #30 packet traMADol HCl [Ultram] 50 mg PO Q6H PRN #12 tab PRN Reason: Moderate Pain (Scale 4 To 6) Ascorbic Acid [Vitamin C] 1,000 mg PO DAILY #30 tab Continue Montelukast Sodium 10 mg PO HS Hydroxychloroquine Sulfate [Plaquenil] 200 mg PO HS Amitriptyline HCl [Elavil] 20 mg PO HS Fluticasone Propion/Salmeterol [Fluticasone-Salmeterol 250-50] 1 puff INHALATION RT-BID Tiotropium 2.5 Mcg/Puff [Spiriva Respimat 2.5 Mcg] 1 puff INHALATION RT-BID Loratadine/Pseudoephedrine [Loratadine-D 24Hr Tablet] 1 tab PO DAILY PRN PRN Reason: Allergy Symptoms Fluconazole [Diflucan] 100 mg PO DAILY Sildenafil Citrate 40 - 60 mg PO DAILY PRN PRN Reason: E.D. Evolocumab [Repatha Sureclick] 140 mg SQ [id number] Albuterol Sulfate [Albuterol Sulfate Hfa] 2 puff INHALATION RT-Q4H PRN PRN Reason: Shortness Of Breath Verapamil HCl [Calan] 120 mg PO HS Ferrous Sulfate [Iron (65 MG Elemental)] 325 mg PO DAILY Discharge Medication List Amitriptyline HCl [Elavil] 20 mg PO HS 07/24/23 [History] Evolocumab [Repatha Sureclick] 140 mg SQ [id number] 07/24/23 [History] Hydroxychloroquine Sulfate [Plaquenil] 200 mg PO HS 07/24/23 [History] Montelukast Sodium 10 mg PO HS 07/24/23 [History] Albuterol Sulfate [Albuterol Sulfate Hfa] 2 puff INHALATION RT-Q4H PRN 09/03/24 [History] Fluticasone Propion/Salmeterol [Fluticasone-Salmeterol 250-50] 1 puff INHALATION RT-BID 09/03/24 [History] Tiotropium 2.5 Mcg/Puff [Spiriva Respimat 2.5 Mcg] 1 puff INHALATION RT-BID 09/03/24 [History] Ferrous Sulfate [Iron (65 MG Elemental)] 325 mg PO DAILY 10/07/24 [History] Fluconazole [Diflucan] 100 mg PO DAILY 10/07/24 [History] Loratadine/Pseudoephedrine [Loratadine-D 24Hr Tablet] 1 tab PO DAILY PRN 10/07/24 [History] Sildenafil Citrate 40 - 60 mg PO DAILY PRN 10/07/24 [History] Verapamil HCl [Calan] 120 mg PO HS 10/07/24 [History] Ascorbic Acid [Vitamin C] 1,000 mg PO DAILY #30 tab 10/08/24 [Rx] polyethylene glycoL 3350 [Miralax] 17 gm PO DAILY #30 packet 10/08/24 [Rx] traMADol HCl [Ultram] 50 mg PO Q6H PRN #12 tab 10/08/24 [Rx] Follow up Appointment(s)/Referral(s): Anna Red MD [STAFF PHYSICIAN] - 10/10/24 2:15 pm Bharathi Espino MD [STAFF PHYSICIAN] - 10/31/24 2:15 pm Khoi Rodriguez DO [Primary Care Provider] - 1-2 days Activity/Diet/Wound Care/Special Instructions: Please be sure to follow up with your primary care physician, Cardiothoracic surgery team and pulmonology within 1-3 week of discharge. Note the following medication changes: ADDED: -Miralax daily -Vitamin C daily Discharge Disposition: HOME SELF-CARE
== END 2024-10-08 10:57 | disposition home or self-care (01) ==
LOC: EC 09:00 → 5NMEDONC 09:57 → 4SSUR 19:37
PROVIDERS: ADMIT Student in an Organized Health Care Education/Training Program; ATTEND Student in an Organized Health Care Education/Training Program
DX: J94.8 Other specified pleural conditions (principal); R65.10 Systemic inflammatory response syndrome (SIRS) of non-infectious origin without acute organ dysfunction; R53.81 Other malaise; D72.829 Elevated white blood cell count, unspecified; R00.0 Tachycardia, unspecified; D75.839 Thrombocytosis, unspecified; J43.9 Emphysema, unspecified; D50.9 Iron deficiency anemia, unspecified; E86.1 Hypovolemia; E87.1 Hypo-osmolality and hyponatremia; G44.009 Cluster headache syndrome, unspecified, not intractable; R43.9 Unspecified disturbances of smell and taste; R63.0 Anorexia; R63.4 Abnormal weight loss; E78.5 Hyperlipidemia, unspecified; K21.9 Gastro-esophageal reflux disease without esophagitis; Z98.890 Other specified postprocedural states; Z87.891 Personal history of nicotine dependence; Z90.2 Acquired absence of lung [part of]; Z88.5 Allergy status to narcotic agent; Z79.51 Long term (current) use of inhaled steroids; Z79.899 Other long term (current) drug therapy
CPT/HCPCS: 96360; 96361; 99285; 36415; 93005; 80053 ×2; 83605; 84484; 85025 ×2; 85610; 85730; 87040; 71045 ×2; G0378 ×3

== ENCOUNTER → 2024-10-07 | Outpatient (CLI) | payer BC ==
--- NOTE | 2024-10-07 08:16 | XR ---
EXAMINATION TYPE: XR chest 2V DATE OF EXAM: 10/07/2024 8:08 AM COMPARISON: 09/12/2024 CLINICAL INDICATION: Male, 59 years old with history of R91.1 LUNG NODULE, , TECHNIQUE: Frontal and lateral views FINDINGS: The left heart margin is entirely obscured by adjacent pleural parenchymal opacity. The subcutaneous emphysema has reviewed improvement in the interval. Ongoing left-sided hydropneumothorax. Air fluid l evel now up to the upper third chest. No lung markings seen at the left apex now. Right lung and pleu ral space appear clear. IMPRESSION: Possibly enlarging large left-sided hydropneumothorax. Air fluid level now reaches up to the upper th ird chest. No lung markings seen now at the left apex. [facility], , 10/07/2024 8:14 AM
--- NOTE | 2024-10-07 08:18 | US ---
EXAMINATION TYPE: US abdomen complete DATE OF EXAM: 10/07/2024 COMPARISON: 01/19/23 CLINICAL INDICATION: Male, 59 years old with history of R74.8 ELEVATED ALKALINE PHOSPHATASE; elevated liver enzymes TECHNIQUE: Grayscale and color Doppler imaging of the abdomen was performed. FINDINGS: EXAM MEASUREMENTS: Liver Length: 13.8 cm Gallbladder Wall: 0.18 cm CBD: 0.35 cm, color Doppler imaging was utilized to isolate the common bile duct for measurement. Spleen: 8.3 cm Right Kidney: 9.2 x 5.1 x 3.7 cm Left Kidney: 11.1 x 5.4 x 5.9 cm Pancreas: Obscured by bowel gas Liver: wnl, no dilated ducts, masses or cysts. Gallbladder: wnl Evidence for sonographic Limon's sign: No CBD: wnl Spleen: wnl Right Kidney: wnl, No hydronephrosis, calculi or masses seen Left Kidney: wnl, No hydronephrosis, calculi or masses seen Upper IVC: wnl Abd Aorta: parts seen appear wnl IMPRESSION: Suboptimal visualization of the pancreas. Otherwise, unremarkable sonographic examination of the abdo men. [facility], Workstation: [id number], 10/07/2024 8:15 AM
== END | disposition home or self-care (01) ==
LOC: RADUSWWP 07:12
PROVIDERS: ATTEND Internal Medicine
DX: R91.1 Solitary pulmonary nodule (principal); R74.8 Abnormal levels of other serum enzymes
CPT/HCPCS: 71046; 76700